=== PATIENT | male | born 1955 | race African-American/Black ===

== ENCOUNTER 2020-06-25 21:25 | Emergency (ER) | payer OTHER, MEDICARE ==
[2020-06-25 21:44] VITALS: BMI 17.6
[2020-06-25] MEDS ORDERED: LACTATED RINGERS SOLUTION 1000 ML INFUS.BAG IV ONE (21:56)
[2020-06-25] MEDS ORDERED: ACETAMINOPHEN 1000 MG/100 ML VIAL (NON FORMULARY) IVPB ONE ×2 (22:11→23:43)
[2020-06-25 23:23] LABS: BASO % 0.5 % (0-2.0); EOS % 0.1 % (0-4.5); HEMATOCRIT 27.1 % (35.4-49); LYMPH % 17.4 % (8-40); MCH 32.2 pg (25.7-33.7); MCHC 33.1 g/dl (32.0-35.9); MEAN CELL VOLUME 97.3 fl (80-96); PLATELET COUNT 123 K/MM3 (134-434); RBC 2.79 M/mm3 (4.00-5.60); RDW 14.2 % (11.9-15.9); WHITE BLOOD COUNT 7.2 K/mm3 (4.0-10.0)
[2020-06-25 23:38] LABS: URINE BARBITURATES NEGATIVE ng/ml (CUTOFF=200)
[2020-06-25 23:39] LABS: METHADONE, UR NEGATIVE ng/ml (CUTOFF=300); OPIATES, URI NEGATIVE ng/ml (CUTOFF=300); URINE BENZODIAZEPINES NEGATIVE ng/ml (CUTOFF=200)
[2020-06-25 23:40] LABS: CHLORIDE 108 mmol/L (98-107); POTASSIUM 3.6 mmol/L (3.5-5.1); SODIUM 140 mmol/L (136-145)
[2020-06-25 23:41] LABS: PHENCYCLIDINE,URINE NEGATIVE ng/ml (CUTOFF=25)
[2020-06-25 23:43] LABS: ALBUMIN 3.3 g/dl (3.4-5.0); CALCIUM 9.2 mg/dL (8.5-10.1); LIPASE 45 U/L (73-393)
[2020-06-25 23:44] LABS: ANION GAP 11 MMOL/L (8-16); BLOOD UREA NITROGEN 18.9 mg/dL (7-18); CO2 21 mmol/L (21-32); GLUCOSE,RANDOM 94 mg/dL (74-106)
[2020-06-25 23:45] LABS: COCAINE, UR NEGATIVE ng/ml (CUTOFF=300); URINE AMPHETAMINES NEGATIVE ng/ml (CUTOFF=500)
[2020-06-25] MEDS ORDERED: SODIUM CHLORIDE 1,000 ML IV SCH (23:45)
[2020-06-25 23:46] LABS: CREATININE 2.1 mg/dL (0.55-1.3); SGOT/AST 53 U/L (15-37); SGPT/ALT 33 U/L (13-61)
[2020-06-25 23:48] LABS: TOT PROT 9.1 g/dl (6.4-8.2)
[2020-06-25 23:49] LABS: ALK PHOS 66 U/L (45-117)
[2020-06-25 23:56] LABS: EPI CELLS 23 /uL (0-25.1); HYALINE CASTS 1 /uL (0-3.1); URINE APPEARANCE CLEAR; URINE BACTERIA 18 /uL (0-1359); URINE BILIRUBIN NEGATIVE (NEGATIVE); URINE COLOR YELLOW; URINE GLUCOSE (UA) NEGATIVE (NEGATIVE); URINE KETONE TRACE (NEGATIVE); URINE LEUK ESTERASE NEGATIVE (NEGATIVE); URINE NITRITE NEGATIVE (NEGATIVE); URINE PROTEIN 2+ (NEGATIVE); URINE RBC 6 /uL (0-23.9); URINE WBC 7 /uL (0-25.8)
[2020-06-26] MEDS ORDERED: ACETAMINOPHEN INJECTION 100 ML IVPB ONE (00:07)
[2020-06-26 01:19] LABS: ACTIVATED PTT 30.6 SECONDS (25.2-36.5)
[2020-06-26 01:26] LABS: VENOUS BASE EXCESS -5.9 mmol/L (-2-2); VENOUS O2 SATURATION 78.8 % (70-80); VENOUS PCO2 26.3 mmHg (38-52); VENOUS PH 7.437 (7.310-7.410)
[2020-06-26 01:46] LABS: POTASSIUM 3.3 mmol/L (3.5-5.1)
[2020-06-26 01:48] LABS: CALCIUM 8.2 mg/dL (8.5-10.1)
[2020-06-26 01:49] LABS: ALBUMIN 2.8 g/dl (3.4-5.0); BLOOD UREA NITROGEN 18.2 mg/dL (7-18)
[2020-06-26 01:52] LABS: CREATININE 1.8 mg/dL (0.55-1.3)
[2020-06-26 01:53] LABS: BILIRUBIN,TOTAL 0.7 mg/dL (0.2-1); TOT PROT 7.6 g/dl (6.4-8.2)
[2020-06-26 01:58] LABS: MAGNESIUM 1.4 mg/dL (1.8-2.4)
[2020-06-26 02:02] LABS: PHOSPHOROUS 2.3 mg/dL (2.5-4.9)
[2020-06-26 03:28] VITALS: BP 170/91; PULSE 94
[2020-06-26 03:49] LABS: INR 1.22 (0.83-1.09); PROTHROMBIN TIME (PATIENT) 14.7 SEC (9.7-13.0)
[2020-06-26] MEDS ORDERED: CEFTRIAXONE 1,000 MG in DEXTROSE 5%-WATER - 50 ML IVPB ONE (04:13)
[2020-06-26] MEDS ORDERED: AZITHROMYCIN IVPB 500 MG in DEXTROSE 5%-WATER - 250 ML IVPB ONE (04:13)
[2020-06-26 04:42] VITALS: TEMP 99.7
[2020-06-26] MEDS ORDERED: CEFTRIAXONE 1 GM/50 ML BAG ONE (05:04)
[2020-06-26] MEDS ORDERED: AZITHROMYCIN IVPB 500 MG/250 ML BAG IVPB ONE (05:04)
== END 2020-06-26 05:15 | disposition short-term general hospital (02) ==
LOC: JER 21:25
PROC: 3E033GC Introduction of Other Therapeutic Substance into Peripheral Vein, Percutaneous Approach (ICD-10-PCS; principal; 2020-06-25)
DX: R41.82 Altered mental status, unspecified (principal); S32.029A Unspecified fracture of second lumbar vertebra, initial encounter for closed fracture; J18.9 Pneumonia, unspecified organism; Y99.9 Unspecified external cause status
CPT/HCPCS: 36415; 70450-TC; 71045-TC-FY; 71250-TC; 72125-TC; 74176-TC; 80053; 80307; 81003; 82140; 82550; 82553; 82728; 82803; 82962; 83605; 83615; 83690; 83735; 84100; 84443; 84484; 85025; 85610; 85730; 86140; 86850; 86900; 86901; 87040; 87086; 87186; 93005; 93010; 99291; 99292; C9803; J0131; U0003

== ENCOUNTER 2020-08-12 11:41 | Inpatient (IN) | payer OTHER, MEDICARE ==
[2020-08-12] MEDS ORDERED: SODIUM CHLORIDE 1,000 ML IV SCH (11:45)
[2020-08-12 12:12] VITALS: BMI 20.9
[2020-08-12 12:25] LABS: BASO % 0.9 % (0-2.0); EOS % 4.6 % (0-4.5); HEMATOCRIT 28.3 % (35.4-49); HEMOGLOBIN 9.5 GM/dL (11.7-16.9); LYMPH % 18.5 % (8-40); MCH 31.1 pg (25.7-33.7); MCHC 33.6 g/dl (32.0-35.9); MEAN CELL VOLUME 92.5 fl (80-96); MEAN PLT VOLUME 8.7 fl (7.5-11.1); MONO % 6.4 % (3.8-10.2); NEUT % 69.6 % (42.8-82.8); PLATELET COUNT 201 K/MM3 (134-434); RBC 3.06 M/mm3 (4.00-5.60); RDW 13.2 % (11.9-15.9); WHITE BLOOD COUNT 8.1 K/mm3 (4.0-10.0)
[2020-08-12 12:33] LABS: INR 1.24 (0.83-1.09); PROTHROMBIN TIME (PATIENT) 15.2 SEC (9.7-13.0)
[2020-08-12 12:36] LABS: ACTIVATED PTT 48.4 SECONDS (25.2-36.5)
[2020-08-12 13:00] LABS: ALBUMIN 3.4 g/dl (3.4-5.0); ALK PHOS 80 U/L (45-117); ANION GAP 9 MMOL/L (8-16); BILIRUBIN,TOTAL 0.3 mg/dL (0.2-1); CALCIUM 9.4 mg/dL (8.5-10.1); CHLORIDE 108 mmol/L (98-107); CHOLESTEROL 183 mg/dL (50-200); CO2 20 mmol/L (21-32); CREATININE 1.8 mg/dL (0.55-1.3); GLUCOSE,RANDOM 155 mg/dL (74-106); HDL CHOLESTEROL 38 mg/dL (40-60); LDL CHOLESTEROL (ONLY SJRH) 119 mg/dL (5-100); SGOT/AST 29 U/L (15-37); SGPT/ALT 28 U/L (13-61); SODIUM 137 mmol/L (136-145); TOT PROT 9.1 g/dl (6.4-8.2); TRIGLYCERIDES 105 mg/dL (0-150)
[2020-08-12 14:29] LABS: LACTIC ACID 3.4 mmol/L (0.4-2.0)
[2020-08-12] MEDS ORDERED: SODIUM CHLORIDE 0.9% 1000 ML INFUS.BAG IV ONE (14:32)
[2020-08-12] MEDS ORDERED: ATORVASTATIN CA 80 MG TABLET (FP) PO ONE (14:49)
[2020-08-12] MEDS ORDERED: ASPIRIN 325 MG ENTERIC COATED TABLET (FP) PO ONE (14:49)
[2020-08-12] MEDS ORDERED: HEPARIN NA (PORCINE) 5,000 UNITS/ML 1ML VIAL ONE ×2 (15:16→22:35)
[2020-08-12] MEDS ORDERED: ATORVASTATIN CA 80 MG TABLET (FP) ONE (15:16)
[2020-08-12] MEDS ORDERED: ASPIRIN 325 MG ENTERIC COATED TABLET (FP) ONE (15:16)
[2020-08-12] MEDS: HEPARIN NA (PORCINE) 5,000 UNITS/ML 1ML VIAL SQ SCH ×2 (15:22→22:38)
[2020-08-12] MEDS ORDERED: FOLIC ACID INJECTION - 1 MG, THIAMINE HCL 100 MG, MULTIVIT INJECTION ADULT 10 ML in SOD... IVPB ONE (16:02)
[2020-08-12 17:47] LABS: URINE APPEARANCE CLEAR; URINE BILIRUBIN NEGATIVE (NEGATIVE); URINE COLOR YELLOW; URINE GLUCOSE (UA) NEGATIVE (NEGATIVE); URINE KETONE NEGATIVE (NEGATIVE); URINE LEUK ESTERASE NEGATIVE (NEGATIVE); URINE NITRITE NEGATIVE (NEGATIVE); URINE PROTEIN NEGATIVE (NEGATIVE); URINE UROBILINOGEN 0.2 mg/dL (0.2-1.0)
[2020-08-12 17:53] LABS: METHADONE, UR NEGATIVE ng/ml (CUTOFF=300); OPIATES, URI NEGATIVE ng/ml (CUTOFF=300); PHENCYCLIDINE,URINE NEGATIVE ng/ml (CUTOFF=25)
[2020-08-12 17:54] LABS: URINE AMPHETAMINES NEGATIVE ng/ml (CUTOFF=500)
[2020-08-12 18:00] LABS: COCAINE, UR NEGATIVE ng/ml (CUTOFF=300); URINE BARBITURATES NEGATIVE ng/ml (CUTOFF=200); URINE BENZODIAZEPINES NEGATIVE ng/ml (CUTOFF=200)
[2020-08-12 18:19] LABS: CHOLESTEROL 189 mg/dL (50-200); IRON SERUM 34 ug/dL (50-175); TRIGLYCERIDES 106 mg/dL (0-150)
[2020-08-12 18:20] LABS: LDL CHOLESTEROL (ONLY SJRH) 122 mg/dL (5-100); TOTAL IRON BINDING CAPACITY 242 ug/dL (250-450)
[2020-08-12 18:22] LABS: HDL CHOLESTEROL 38 mg/dL (40-60)
[2020-08-13] MEDS: HEPARIN NA (PORCINE) 5,000 UNITS/ML 1ML VIAL SQ SCH ×3 (06:01→21:21)
[2020-08-13 09:17] LABS: BASO % 1.4 % (0-2.0); EOS % 7.6 % (0-4.5); HEMATOCRIT 25.4 % (35.4-49); HEMOGLOBIN 8.6 GM/dL (11.7-16.9); LYMPH % 32.9 % (8-40); MCHC 33.9 g/dl (32.0-35.9); MEAN CELL VOLUME 91.5 fl (80-96); MEAN PLT VOLUME 8.5 fl (7.5-11.1); MONO % 11.5 % (3.8-10.2); NEUT % 46.6 % (42.8-82.8); PLATELET COUNT 181 K/MM3 (134-434); RBC 2.78 M/mm3 (4.00-5.60); RDW 13.4 % (11.9-15.9); WHITE BLOOD COUNT 5.2 K/mm3 (4.0-10.0)
[2020-08-13] MEDS: ASPIRIN 81 MG CHEWABLE TABLETS PO SCH (09:44)
[2020-08-13] MEDS: PANTOPRAZOLE 40 MG TABLET PO SCH (09:44)
[2020-08-13 10:17] LABS: ALBUMIN 3.1 g/dl (3.4-5.0); BILIRUBIN,TOTAL 0.5 mg/dL (0.2-1); CALCIUM 9.2 mg/dL (8.5-10.1); CREATININE 1.5 mg/dL (0.55-1.3); MAGNESIUM 1.7 mg/dL (1.8-2.4); PHOSPHOROUS 4.4 mg/dL (2.5-4.9); TOT PROT 8.3 g/dl (6.4-8.2)
[2020-08-13] MEDS ORDERED: MAGNESIUM OXIDE 400 MG TABLET (FP) PO ONE (10:43)
[2020-08-13] MEDS: THIAMINE HCL 100 MG TABLET (FP) PO SCH (13:46)
[2020-08-13] MEDS: LABETALOL HCL 200 MG TABLET (FP) PO SCH (21:21)
[2020-08-13] MEDS ORDERED: ATORVASTATIN CA 40 MG TABLET (FP) PO SCH (22:00)
[2020-08-14] MEDS: HEPARIN NA (PORCINE) 5,000 UNITS/ML 1ML VIAL SQ SCH (05:40)
[2020-08-14 08:19] VITALS: TEMP 98
[2020-08-14 08:30] LABS: HEMATOCRIT 25.2 % (35.4-49); HEMOGLOBIN 8.4 GM/dL (11.7-16.9); MCH 30.9 pg (25.7-33.7); MCHC 33.4 g/dl (32.0-35.9); MEAN CELL VOLUME 92.7 fl (80-96); MEAN PLT VOLUME 8.9 fl (7.5-11.1); PLATELET COUNT 181 K/MM3 (134-434); RBC 2.72 M/mm3 (4.00-5.60); RDW 13.3 % (11.9-15.9); WHITE BLOOD COUNT 5.1 K/mm3 (4.0-10.0)
[2020-08-14] MEDS: ASPIRIN 81 MG CHEWABLE TABLETS PO SCH (09:52)
[2020-08-14] MEDS: LABETALOL HCL 200 MG TABLET (FP) PO SCH (09:52)
[2020-08-14] MEDS: PANTOPRAZOLE 40 MG TABLET PO SCH (09:52)
[2020-08-14] MEDS: THIAMINE HCL 100 MG TABLET (FP) PO SCH (09:52)
[2020-08-14] MEDS ORDERED: amLODIPine BESYLATE 10 MG TABLET (FP) PO SCH (10:00)
[2020-08-14 10:28] LABS: BLOOD UREA NITROGEN 19.8 mg/dL (7-18); CALCIUM 9.4 mg/dL (8.5-10.1)
[2020-08-14 10:32] LABS: CREATININE 1.8 mg/dL (0.55-1.3); PHOSPHOROUS 4.6 mg/dL (2.5-4.9)
[2020-08-14 10:33] LABS: BILIRUBIN,TOTAL 0.3 mg/dL (0.2-1); TOT PROT 8.4 g/dl (6.4-8.2)
[2020-08-14 13:51] VITALS: BP 115/87; PULSE 70
== END 2020-08-14 15:52 | disposition home or self-care (01) | DRG 65 ==
LOC: JER 11:41 → JERBED 13:36 → J6WEST-2 08-13 02:10
PROVIDERS: ATTEND Student in an Organized Health Care Education/Training Program
DX: I63.9 Cerebral infarction, unspecified (principal); I69.351 Hemiplegia and hemiparesis following cerebral infarction affecting right dominant side; I69.392 Facial weakness following cerebral infarction; I65.22 Occlusion and stenosis of left carotid artery; I25.10 Atherosclerotic heart disease of native coronary artery without angina pectoris; I10 Essential (primary) hypertension; R29.701 NIHSS score 1; H40.9 Unspecified glaucoma; F03.90 Unspecified dementia, unspecified severity, without behavioral disturbance, psychotic disturbance, mood disturbance, and anxiety; R41.82 Altered mental status, unspecified; K21.9 Gastro-esophageal reflux disease without esophagitis; E03.9 Hypothyroidism, unspecified; D50.9 Iron deficiency anemia, unspecified; R32 Unspecified urinary incontinence; I69.391 Dysphagia following cerebral infarction; R13.10 Dysphagia, unspecified
CPT/HCPCS: 36415; 70450-TC; 70551-TC; 71045-TC-FY; 80053; 80061; 80307; 81003; 82140; 82550; 82607; 82728; 83036; 83090; 83540; 83550; 83605; 83721; 83735; 84100; 84146; 84436; 84439; 84443; 84484; 85025; 85027; 85610; 85730; 86593; 86780; 86850; 86900; 86901; 87804; 93005; 93010; 93306-TC; 93880-TC; 97116-GP; 97161-GP; 99285-25; C9803; G0480; J1644; U0003; U0005

== ENCOUNTER 2020-08-16 09:58 | Inpatient (IN) | payer OTHER, MEDICARE ==
[2020-08-16 10:33] LABS: BASO % 0.8 % (0-2.0); EOS % 6.3 % (0-4.5); HEMATOCRIT 26.2 % (35.4-49); HEMOGLOBIN 8.8 GM/dL (11.7-16.9); LYMPH % 26.8 % (8-40); MCH 31.5 pg (25.7-33.7); MCHC 33.5 g/dl (32.0-35.9); MEAN CELL VOLUME 93.8 fl (80-96); MEAN PLT VOLUME 8.8 fl (7.5-11.1); MONO % 11.6 % (3.8-10.2); NEUT % 54.5 % (42.8-82.8); PLATELET COUNT 191 K/MM3 (134-434); RBC 2.79 M/mm3 (4.00-5.60); RDW 13.8 % (11.9-15.9); WHITE BLOOD COUNT 6.6 K/mm3 (4.0-10.0)
[2020-08-16 10:40] LABS: INR 1.2 (0.83-1.09); PROTHROMBIN TIME (PATIENT) 14.7 SEC (9.7-13.0)
[2020-08-16 10:57] LABS: CHLORIDE 105 mmol/L (98-107); SODIUM 133 mmol/L (136-145)
[2020-08-16 10:59] LABS: BLOOD UREA NITROGEN 20.4 mg/dL (7-18); CALCIUM 9.2 mg/dL (8.5-10.1); CO2 22 mmol/L (21-32)
[2020-08-16 11:01] LABS: GLUCOSE,RANDOM 82 mg/dL (74-106)
[2020-08-16 11:02] LABS: CREATININE 1.9 mg/dL (0.55-1.3)
[2020-08-16 11:03] LABS: CHOLESTEROL 137 mg/dL (50-200); TRIGLYCERIDES 67 mg/dL (0-150)
[2020-08-16 11:04] LABS: BILIRUBIN,TOTAL 0.3 mg/dL (0.2-1); LDL CHOLESTEROL (ONLY SJRH) 93 mg/dL (5-100); TOT PROT 9.7 g/dl (6.4-8.2)
[2020-08-16 11:05] LABS: ALK PHOS 86 U/L (45-117)
[2020-08-16 11:06] LABS: HDL CHOLESTEROL 39 mg/dL (40-60)
[2020-08-16 11:46] LABS: ANION GAP 7 MMOL/L (8-16); SGOT/AST 117 U/L (15-37); SGPT/ALT 36 U/L (13-61)
[2020-08-16] MEDS ORDERED: CLOPIDOGREL BISULFATE 300 MG TABLET PO ONE (12:22)
[2020-08-16] MEDS ORDERED: CLOPIDOGREL BISULFATE 300 MG TABLET ONE (12:44)
[2020-08-16] MEDS ORDERED: ACETAMINOPHEN 325 MG TABLET (FP) PO PRN (16:31)
[2020-08-16] MEDS ORDERED: SODIUM CHLORIDE 1,000 ML IV SCH (16:45)
[2020-08-16] MEDS ORDERED: ASPIRIN COATED 81 MG TABLET.EC ONE (17:30)
[2020-08-16] MEDS: ASPIRIN COATED 81 MG TABLET.EC PO SCH (17:33)
[2020-08-16] MEDS: HEPARIN NA (PORCINE) 5,000 UNITS/ML 1ML VIAL SQ SCH ×2 (18:57→22:18)
[2020-08-16 22:15] LABS: CHOLESTEROL 147 mg/dL (50-200); TRIGLYCERIDES 98 mg/dL (0-150)
[2020-08-16 22:16] LABS: LDL CHOLESTEROL (ONLY SJRH) 90 mg/dL (5-100)
[2020-08-16 22:18] LABS: HDL CHOLESTEROL 34 mg/dL (40-60)
[2020-08-16] MEDS: ATORVASTATIN CA 80 MG TABLET (FP) PO SCH (22:18)
[2020-08-16] MEDS: INSULIN SLIDING SCALE (NOVOLOG) 1 VIAL SQ SCH (22:19)
[2020-08-17 01:59] LABS: URINE APPEARANCE CLEAR; URINE BILIRUBIN NEGATIVE (NEGATIVE); URINE COLOR YELLOW; URINE GLUCOSE (UA) NEGATIVE (NEGATIVE); URINE KETONE NEGATIVE (NEGATIVE); URINE LEUK ESTERASE NEGATIVE (NEGATIVE); URINE NITRITE NEGATIVE (NEGATIVE); URINE PROTEIN NEGATIVE (NEGATIVE)
[2020-08-17] MEDS: INSULIN SLIDING SCALE (NOVOLOG) 1 VIAL SQ SCH ×4 (06:38→22:07)
[2020-08-17] MEDS: HEPARIN NA (PORCINE) 5,000 UNITS/ML 1ML VIAL SQ SCH ×3 (06:41→22:06)
[2020-08-17 07:18] LABS: BASO % 1.2 % (0-2.0); EOS % 6.9 % (0-4.5); HEMATOCRIT 23.1 % (35.4-49); HEMOGLOBIN 7.9 GM/dL (11.7-16.9); LYMPH % 30.5 % (8-40); MCH 31.2 pg (25.7-33.7); MCHC 34.4 g/dl (32.0-35.9); MEAN CELL VOLUME 90.9 fl (80-96); MEAN PLT VOLUME 8.5 fl (7.5-11.1); MONO % 14.2 % (3.8-10.2); NEUT % 47.2 % (42.8-82.8); PLATELET COUNT 173 K/MM3 (134-434); RBC 2.54 M/mm3 (4.00-5.60); RDW 13.4 % (11.9-15.9); WHITE BLOOD COUNT 5.7 K/mm3 (4.0-10.0)
[2020-08-17 07:19] LABS: INR 1.16 (0.83-1.09); PROTHROMBIN TIME (PATIENT) 14.2 SEC (9.7-13.0)
[2020-08-17 07:41] LABS: BLOOD UREA NITROGEN 26.4 mg/dL (7-18); CALCIUM 9.1 mg/dL (8.5-10.1); MAGNESIUM 1.8 mg/dL (1.8-2.4)
[2020-08-17 07:44] LABS: CREATININE 1.6 mg/dL (0.55-1.3)
[2020-08-17 07:46] LABS: BILIRUBIN,TOTAL 0.3 mg/dL (0.2-1); TOT PROT 8.2 g/dl (6.4-8.2)
[2020-08-17] MEDS ORDERED: PNEUMOC 13-VAL CONJ-DIP CRM/PF 0.5 ML DISP.SYRIN IM ONE (10:00)
[2020-08-17 10:32] LABS: ANISOCYTOSIS 1+; MACROCYTOSIS 1+; PLATELET ESTIMATE NORMAL
[2020-08-17] MEDS: ASPIRIN COATED 81 MG TABLET.EC PO SCH (10:44)
[2020-08-17] MEDS: CLOPIDOGREL BISULFATE 75 MG TABLET (FP) PO SCH (10:44)
[2020-08-17 13:18] VITALS: BMI 20.8
[2020-08-17] MEDS: ATORVASTATIN CA 80 MG TABLET (FP) PO SCH (22:06)
[2020-08-17 22:47] LABS: COCAINE, UR NEGATIVE ng/ml (CUTOFF=300); METHADONE, UR NEGATIVE ng/ml (CUTOFF=300); OPIATES, URI NEGATIVE ng/ml (CUTOFF=300); PHENCYCLIDINE,URINE NEGATIVE ng/ml (CUTOFF=25); URINE AMPHETAMINES NEGATIVE ng/ml (CUTOFF=500); URINE BARBITURATES NEGATIVE ng/ml (CUTOFF=200); URINE BENZODIAZEPINES NEGATIVE ng/ml (CUTOFF=200)
[2020-08-18] MEDS: HEPARIN NA (PORCINE) 5,000 UNITS/ML 1ML VIAL SQ SCH ×3 (06:48→21:47)
[2020-08-18] MEDS: INSULIN SLIDING SCALE (NOVOLOG) 1 VIAL SQ SCH (06:48)
[2020-08-18 07:19] LABS: HEMATOCRIT 24.4 % (35.4-49); HEMOGLOBIN 8.3 GM/dL (11.7-16.9); MCH 31.3 pg (25.7-33.7); MEAN CELL VOLUME 91.9 fl (80-96); MEAN PLT VOLUME 8.7 fl (7.5-11.1); PLATELET COUNT 193 K/MM3 (134-434); RBC 2.66 M/mm3 (4.00-5.60); RDW 13.2 % (11.9-15.9); WHITE BLOOD COUNT 7.6 K/mm3 (4.0-10.0)
[2020-08-18 07:39] LABS: BLOOD UREA NITROGEN 24.8 mg/dL (7-18); CALCIUM 9.3 mg/dL (8.5-10.1); CREATININE 1.7 mg/dL (0.55-1.3)
[2020-08-18] MEDS: ASPIRIN COATED 81 MG TABLET.EC PO SCH (09:36)
[2020-08-18] MEDS: CLOPIDOGREL BISULFATE 75 MG TABLET (FP) PO SCH (09:37)
[2020-08-18] MEDS ORDERED: EPOETIN ALFA 10,000 UNIT/1 ML VIAL SQ ONE (12:00)
[2020-08-18] MEDS: LABETALOL HCL 200 MG TABLET (FP) PO SCH (21:47)
[2020-08-18] MEDS: ATORVASTATIN CA 80 MG TABLET (FP) PO SCH (21:47)
[2020-08-19] MEDS: HEPARIN NA (PORCINE) 5,000 UNITS/ML 1ML VIAL SQ SCH ×2 (06:53→13:26)
[2020-08-19] MEDS: CLOPIDOGREL BISULFATE 75 MG TABLET (FP) PO SCH (09:03)
[2020-08-19] MEDS: LABETALOL HCL 200 MG TABLET (FP) PO SCH (09:04)
[2020-08-19] MEDS: ASPIRIN COATED 81 MG TABLET.EC PO SCH (09:04)
[2020-08-19 13:59] VITALS: BP 121/77; PULSE 75; TEMP 98.2
== END 2020-08-19 16:40 | disposition home or self-care (01) | DRG 948 ==
LOC: JER 09:58 → SUPCPDRO 09:58 → JERBED 15:02 → J4W 20:29
PROVIDERS: ADMIT Internal Medicine; ATTEND Student in an Organized Health Care Education/Training Program
DX: R41.0 Disorientation, unspecified (principal); R29.810 Facial weakness; F03.90 Unspecified dementia, unspecified severity, without behavioral disturbance, psychotic disturbance, mood disturbance, and anxiety; I10 Essential (primary) hypertension; N18.9 Chronic kidney disease, unspecified; F10.10 Alcohol abuse, uncomplicated; F16.90 Hallucinogen use, unspecified, uncomplicated; E78.5 Hyperlipidemia, unspecified; I25.10 Atherosclerotic heart disease of native coronary artery without angina pectoris; F17.210 Nicotine dependence, cigarettes, uncomplicated
CPT/HCPCS: 36415; 70450-TC; 71045-TC-FY; 72125-TC; 76775-TC; 80048; 80053; 80061; 80307; 81003; 82550; 82553; 82570; 82962; 83721; 83735; 84100; 84132; 84156; 84484; 85025; 85027; 85610; 85730; 87086; 90670; 93005; 93010; 97116-GP; 97161-GP; 99285-25; C9803; G0480; J0885; J1644; U0003; U0005

== ENCOUNTER 2020-08-21 11:04 | Inpatient (IN) | payer OTHER, MEDICARE ==
[2020-08-21 12:40] LABS: BASO % 3.8 % (0-2.0); EOS % 5.7 % (0-4.5); HEMATOCRIT 26.5 % (35.4-49); HEMOGLOBIN 8.8 GM/dL (11.7-16.9); LYMPH % 19.7 % (8-40); MCH 30.6 pg (25.7-33.7); MCHC 33.3 g/dl (32.0-35.9); MEAN PLT VOLUME 8.7 fl (7.5-11.1); MONO % 9.9 % (3.8-10.2); NEUT % 60.9 % (42.8-82.8); PLATELET COUNT 227 K/MM3 (134-434); RBC 2.88 M/mm3 (4.00-5.60); RDW 13.3 % (11.9-15.9); WHITE BLOOD COUNT 7.1 K/mm3 (4.0-10.0)
[2020-08-21 12:44] LABS: INR 1.21 (0.83-1.09); PROTHROMBIN TIME (PATIENT) 14.6 SEC (9.7-13.0)
[2020-08-21 12:55] LABS: CHLORIDE 109 mmol/L (98-107); SODIUM 138 mmol/L (136-145)
[2020-08-21 12:58] LABS: CALCIUM 9.6 mg/dL (8.5-10.1)
[2020-08-21 12:59] LABS: ALBUMIN 3.2 g/dl (3.4-5.0); ANION GAP 5 MMOL/L (8-16); BLOOD UREA NITROGEN 32.6 mg/dL (7-18); CO2 24 mmol/L (21-32); GLUCOSE,RANDOM 95 mg/dL (74-106); MAGNESIUM 2.1 mg/dL (1.8-2.4)
[2020-08-21 13:02] LABS: SGOT/AST 43 U/L (15-37); SGPT/ALT 29 U/L (13-61)
[2020-08-21 13:03] LABS: BILIRUBIN,TOTAL 0.3 mg/dL (0.2-1)
[2020-08-21 13:04] LABS: ALK PHOS 88 U/L (45-117)
[2020-08-21] MEDS ORDERED: SODIUM CHLORIDE 500 ML IV STA (13:07)
[2020-08-21 18:28] LABS: EPI CELLS 3 /uL (0-25.1); HYALINE CASTS 0 /uL (0-3.1); PH,URINE 6.5 (5.0-8.0); URINE APPEARANCE CLEAR; URINE BACTERIA 50 /uL (0-1359); URINE BILIRUBIN NEGATIVE (NEGATIVE); URINE COLOR YELLOW; URINE GLUCOSE (UA) NEGATIVE (NEGATIVE); URINE KETONE NEGATIVE (NEGATIVE); URINE LEUK ESTERASE TRACE (NEGATIVE); URINE NITRITE NEGATIVE (NEGATIVE); URINE PROTEIN TRACE (NEGATIVE); URINE RBC 0 /uL (0-23.9); URINE UROBILINOGEN 0.2 mg/dL (0.2-1.0); URINE WBC 2 /uL (0-25.8)
[2020-08-21] MEDS ORDERED: HEPARIN NA (PORCINE) 5,000 UNITS/ML 1ML VIAL SQ SCH (22:00)
[2020-08-21] MEDS ORDERED: LABETALOL HCL 200 MG TABLET (FP) PO SCH (22:00)
[2020-08-21] MEDS: INSULIN SLIDING SCALE (NOVOLOG) 1 VIAL SQ SCH (23:07)
[2020-08-21] MEDS: ATORVASTATIN CA 80 MG TABLET (FP) PO SCH (23:08)
[2020-08-21] MEDS: SODIUM CHLORIDE 1,000 ML IV SCH (23:08)
[2020-08-22 01:11] VITALS: BMI 20.7
[2020-08-22] MEDS: INSULIN SLIDING SCALE (NOVOLOG) 1 VIAL SQ SCH ×4 (06:11→21:44)
[2020-08-22 08:49] LABS: EOS % 7.7 % (0-4.5); HEMATOCRIT 25.3 % (35.4-49); HEMOGLOBIN 8.6 GM/dL (11.7-16.9); LYMPH % 27.5 % (8-40); MCH 31.3 pg (25.7-33.7); MCHC 34.1 g/dl (32.0-35.9); MEAN CELL VOLUME 91.8 fl (80-96); MEAN PLT VOLUME 8.5 fl (7.5-11.1); MONO % 11.3 % (3.8-10.2); NEUT % 52.5 % (42.8-82.8); PLATELET COUNT 231 K/MM3 (134-434); RBC 2.75 M/mm3 (4.00-5.60); RDW 13.1 % (11.9-15.9); WHITE BLOOD COUNT 5.8 K/mm3 (4.0-10.0)
[2020-08-22 09:09] LABS: ALBUMIN 3.3 g/dl (3.4-5.0); MAGNESIUM 1.8 mg/dL (1.8-2.4)
[2020-08-22 09:10] LABS: BLOOD UREA NITROGEN 24.3 mg/dL (7-18); CALCIUM 9.2 mg/dL (8.5-10.1)
[2020-08-22 09:13] LABS: CREATININE 1.6 mg/dL (0.55-1.3)
[2020-08-22 09:14] LABS: PHOSPHOROUS 4.5 mg/dL (2.5-4.9); TOT PROT 8.6 g/dl (6.4-8.2)
[2020-08-22 09:15] LABS: BILIRUBIN,TOTAL 0.4 mg/dL (0.2-1)
[2020-08-22] MEDS: ASPIRIN COATED 81 MG TABLET.EC PO SCH (09:32)
[2020-08-22] MEDS ORDERED: amLODIPine BESYLATE 10 MG TABLET (FP) PO SCH (10:00)
[2020-08-22] MEDS ORDERED: INSULIN (NOVOLOG) ASPART 100 UNITS/ML 10ML VIAL ONE (11:43)
[2020-08-22] MEDS: SODIUM CHLORIDE 1,000 ML IV SCH (18:48)
[2020-08-22] MEDS: LABETALOL HCL 200 MG TABLET (FP) PO SCH (21:24)
[2020-08-22] MEDS: ATORVASTATIN CA 80 MG TABLET (FP) PO SCH (21:24)
[2020-08-23] MEDS: INSULIN SLIDING SCALE (NOVOLOG) 1 VIAL SQ SCH ×3 (06:14→16:53)
[2020-08-23 07:35] LABS: HEMATOCRIT 23.1 % (35.4-49); HEMOGLOBIN 7.8 GM/dL (11.7-16.9); MCH 31.4 pg (25.7-33.7); MCHC 33.8 g/dl (32.0-35.9); MEAN PLT VOLUME 8.8 fl (7.5-11.1); PLATELET COUNT 223 K/MM3 (134-434); RBC 2.48 M/mm3 (4.00-5.60); RDW 13.6 % (11.9-15.9); WHITE BLOOD COUNT 8.2 K/mm3 (4.0-10.0)
[2020-08-23 08:00] LABS: CALCIUM 9.5 mg/dL (8.5-10.1)
[2020-08-23 08:01] LABS: MAGNESIUM 1.8 mg/dL (1.8-2.4)
[2020-08-23 08:04] LABS: BLOOD UREA NITROGEN 27.5 mg/dL (7-18)
[2020-08-23 08:07] LABS: CREATININE 1.6 mg/dL (0.55-1.3)
[2020-08-23] MEDS ORDERED: SODIUM CHLORIDE 250 ML IV STA (09:15)
[2020-08-23] MEDS: ASPIRIN COATED 81 MG TABLET.EC PO SCH (10:00)
[2020-08-23] MEDS: LABETALOL HCL 200 MG TABLET (FP) PO SCH ×2 (10:00→21:32)
[2020-08-23] MEDS: CLOPIDOGREL BISULFATE 75 MG TABLET (FP) PO SCH (10:00)
[2020-08-23] MEDS: MULTIVITAMINS (DAILY MVI) TABLET (FP) PO SCH (10:00)
[2020-08-23] MEDS: amLODIPine BESYLATE 10 MG TABLET (FP) PO SCH (10:00)
[2020-08-23] MEDS: THIAMINE HCL 100 MG TABLET (FP) PO SCH (10:00)
[2020-08-23] MEDS: ACETAMINOPHEN 325 MG TABLET (FP) PO PRN (14:10)
[2020-08-23 20:59] LABS: PH,URINE 5.5 (5.0-8.0); URINE APPEARANCE CLEAR; URINE BILIRUBIN NEGATIVE (NEGATIVE); URINE COLOR YELLOW; URINE GLUCOSE (UA) NEGATIVE (NEGATIVE); URINE KETONE NEGATIVE (NEGATIVE); URINE LEUK ESTERASE NEGATIVE (NEGATIVE); URINE NITRITE NEGATIVE (NEGATIVE); URINE PROTEIN NEGATIVE (NEGATIVE); URINE UROBILINOGEN 0.2 mg/dL (0.2-1.0)
[2020-08-23] MEDS: ATORVASTATIN CA 80 MG TABLET (FP) PO SCH (21:32)
[2020-08-23] MEDS: SODIUM CHLORIDE 1,000 ML IV SCH (21:32)
[2020-08-24] MEDS: SODIUM CHLORIDE 1,000 ML IV SCH (03:21)
[2020-08-24] MEDS: ACETAMINOPHEN 325 MG TABLET (FP) PO PRN (06:52)
[2020-08-24 08:21] LABS: BASO % 0.8 % (0-2.0); EOS % 3.9 % (0-4.5); HEMATOCRIT 23.5 % (35.4-49); HEMOGLOBIN 7.9 GM/dL (11.7-16.9); LYMPH % 21.5 % (8-40); MCH 30.8 pg (25.7-33.7); MCHC 33.6 g/dl (32.0-35.9); MEAN CELL VOLUME 91.8 fl (80-96); MEAN PLT VOLUME 8.2 fl (7.5-11.1); MONO % 12.8 % (3.8-10.2); PLATELET COUNT 225 K/MM3 (134-434); RBC 2.56 M/mm3 (4.00-5.60); RDW 13.5 % (11.9-15.9); WHITE BLOOD COUNT 7.6 K/mm3 (4.0-10.0)
[2020-08-24 08:55] LABS: CREATININE 1.8 mg/dL (0.55-1.3); MAGNESIUM 1.6 mg/dL (1.8-2.4)
[2020-08-24 08:56] LABS: PHOSPHOROUS 4.3 mg/dL (2.5-4.9)
[2020-08-24 08:57] LABS: BILIRUBIN,TOTAL 0.5 mg/dL (0.2-1); TOT PROT 8.1 g/dl (6.4-8.2)
[2020-08-24] MEDS ORDERED: MAGNESIUM SULF 50% (8.12 MEQ/2 ML-1 GM VIAL) IVPB ONE (10:05)
[2020-08-24] MEDS: THIAMINE HCL 100 MG TABLET (FP) PO SCH (10:34)
[2020-08-24] MEDS: MULTIVITAMINS (DAILY MVI) TABLET (FP) PO SCH (10:35)
[2020-08-24] MEDS: ASPIRIN COATED 81 MG TABLET.EC PO SCH (10:35)
[2020-08-24] MEDS: amLODIPine BESYLATE 10 MG TABLET (FP) PO SCH (10:35)
[2020-08-24] MEDS: LORATADINE 10 MG TABLET PO SCH (10:35)
[2020-08-24] MEDS: CLOPIDOGREL BISULFATE 75 MG TABLET (FP) PO SCH (10:35)
[2020-08-24] MEDS: LABETALOL HCL 200 MG TABLET (FP) PO SCH ×2 (10:35→21:33)
[2020-08-24 10:51] LABS: ANISOCYTOSIS 1+; PLATELET ESTIMATE NORMAL
[2020-08-24] MEDS ORDERED: SODIUM CHLORIDE 1,000 ML IV SCH (12:30)
[2020-08-24 14:07] LABS: HEP B CORE AB, TOT Negative (Negative)
[2020-08-24] MEDS: ATORVASTATIN CA 80 MG TABLET (FP) PO SCH (21:33)
[2020-08-25] MEDS: ACETAMINOPHEN 325 MG TABLET (FP) PO PRN (01:21)
[2020-08-25 08:25] LABS: HEMATOCRIT 22.9 % (35.4-49); HEMOGLOBIN 7.8 GM/dL (11.7-16.9); MCH 31.3 pg (25.7-33.7); MCHC 33.9 g/dl (32.0-35.9); MEAN CELL VOLUME 92.1 fl (80-96); MEAN PLT VOLUME 8.8 fl (7.5-11.1); PLATELET COUNT 221 K/MM3 (134-434); RBC 2.49 M/mm3 (4.00-5.60); RDW 13.5 % (11.9-15.9); WHITE BLOOD COUNT 7.1 K/mm3 (4.0-10.0)
[2020-08-25 08:42] LABS: BLOOD UREA NITROGEN 39.9 mg/dL (7-18); CALCIUM 8.9 mg/dL (8.5-10.1)
[2020-08-25 08:43] LABS: MAGNESIUM 2.2 mg/dL (1.8-2.4)
[2020-08-25 08:45] LABS: CREATININE 1.9 mg/dL (0.55-1.3); PHOSPHOROUS 4.8 mg/dL (2.5-4.9)
[2020-08-25 08:47] LABS: BILIRUBIN,TOTAL 0.4 mg/dL (0.2-1); TOT PROT 8.2 g/dl (6.4-8.2)
[2020-08-25] MEDS: LORATADINE 10 MG TABLET PO SCH (10:04)
[2020-08-25] MEDS: LABETALOL HCL 200 MG TABLET (FP) PO SCH ×2 (10:04→21:39)
[2020-08-25] MEDS: ASPIRIN COATED 81 MG TABLET.EC PO SCH (10:04)
[2020-08-25] MEDS: THIAMINE HCL 100 MG TABLET (FP) PO SCH (10:04)
[2020-08-25] MEDS: MULTIVITAMINS (DAILY MVI) TABLET (FP) PO SCH (10:04)
[2020-08-25] MEDS: CLOPIDOGREL BISULFATE 75 MG TABLET (FP) PO SCH (10:04)
[2020-08-25] MEDS: amLODIPine BESYLATE 10 MG TABLET (FP) PO SCH (10:04)
[2020-08-25] MEDS: ATORVASTATIN CA 80 MG TABLET (FP) PO SCH (21:39)
[2020-08-26 07:46] LABS: EOS % 5.6 % (0-4.5); HEMATOCRIT 23.8 % (35.4-49); HEMOGLOBIN 8.1 GM/dL (11.7-16.9); LYMPH % 26.1 % (8-40); MCH 31.4 pg (25.7-33.7); MCHC 34.1 g/dl (32.0-35.9); MEAN PLT VOLUME 8.6 fl (7.5-11.1); MONO % 13.3 % (3.8-10.2); PLATELET COUNT 239 K/MM3 (134-434); RBC 2.59 M/mm3 (4.00-5.60); RDW 13.5 % (11.9-15.9); WHITE BLOOD COUNT 7.9 K/mm3 (4.0-10.0)
[2020-08-26 08:02] LABS: ALBUMIN 3.3 g/dl (3.4-5.0); BLOOD UREA NITROGEN 43.7 mg/dL (7-18); CALCIUM 9.9 mg/dL (8.5-10.1); MAGNESIUM 2.2 mg/dL (1.8-2.4)
[2020-08-26 08:07] LABS: BILIRUBIN,TOTAL 0.4 mg/dL (0.2-1); TOT PROT 9.1 g/dl (6.4-8.2)
[2020-08-26] MEDS ORDERED: ALBUTEROL SO4 HFA INHALER IH PRN (08:49)
[2020-08-26] MEDS ORDERED: SODIUM CHLORIDE 500 ML IV STA (09:59)
[2020-08-26] MEDS ORDERED: LACTATED RINGERS SOLUTION 1,000 ML/1,000 ML INFUS.BAG IV STA (10:01)
[2020-08-26] MEDS ORDERED: LACTATED RINGERS SOLUTION 1,000 ML/1,000 ML INFUS.BAG IV SCH (10:15)
[2020-08-26] MEDS: MULTIVITAMINS (DAILY MVI) TABLET (FP) PO SCH (10:33)
[2020-08-26] MEDS: LABETALOL HCL 200 MG TABLET (FP) PO SCH ×2 (10:33→23:05)
[2020-08-26] MEDS: LORATADINE 10 MG TABLET PO SCH (10:33)
[2020-08-26] MEDS: ASPIRIN COATED 81 MG TABLET.EC PO SCH (10:33)
[2020-08-26] MEDS: THIAMINE HCL 100 MG TABLET (FP) PO SCH (10:33)
[2020-08-26] MEDS: amLODIPine BESYLATE 10 MG TABLET (FP) PO SCH (10:34)
[2020-08-26] MEDS: CLOPIDOGREL BISULFATE 75 MG TABLET (FP) PO SCH (10:34)
[2020-08-26 15:38] LABS: BLOOD UREA NITROGEN 47.1 mg/dL (7-18); CALCIUM 9.2 mg/dL (8.5-10.1)
[2020-08-26] MEDS ORDERED: SODIUM ZIRCONIUM CYCLOSILICATE (LOKELMA) 5 GM PACKET PO ONE (15:38)
[2020-08-26 15:39] LABS: MAGNESIUM 2.1 mg/dL (1.8-2.4)
[2020-08-26 15:42] LABS: PHOSPHOROUS 5.1 mg/dL (2.5-4.9)
[2020-08-26] MEDS ORDERED: SODIUM CHLORIDE 0.45% 1,000 ML IV SCH (15:45)
[2020-08-26] MEDS: ATORVASTATIN CA 80 MG TABLET (FP) PO SCH (23:05)
[2020-08-27 07:39] LABS: HEMATOCRIT 22.7 % (35.4-49); HEMOGLOBIN 7.8 GM/dL (11.7-16.9); MCH 31.2 pg (25.7-33.7); MCHC 34.4 g/dl (32.0-35.9); MEAN CELL VOLUME 90.9 fl (80-96); MEAN PLT VOLUME 8.7 fl (7.5-11.1); PLATELET COUNT 233 K/MM3 (134-434); RDW 13.5 % (11.9-15.9); WHITE BLOOD COUNT 5.8 K/mm3 (4.0-10.0)
[2020-08-27 08:10] LABS: BLOOD UREA NITROGEN 41.5 mg/dL (7-18); CALCIUM 9.6 mg/dL (8.5-10.1); MAGNESIUM 2.1 mg/dL (1.8-2.4)
[2020-08-27 08:11] LABS: BILIRUBIN,TOTAL 0.3 mg/dL (0.2-1); TOT PROT 8.8 g/dl (6.4-8.2)
[2020-08-27 08:13] LABS: CREATININE 1.8 mg/dL (0.55-1.3); PHOSPHOROUS 5.2 mg/dL (2.5-4.9)
[2020-08-27] MEDS: LORATADINE 10 MG TABLET PO SCH (09:33)
[2020-08-27] MEDS: CLOPIDOGREL BISULFATE 75 MG TABLET (FP) PO SCH (09:33)
[2020-08-27] MEDS: ASPIRIN COATED 81 MG TABLET.EC PO SCH (09:33)
[2020-08-27] MEDS: THIAMINE HCL 100 MG TABLET (FP) PO SCH (09:33)
[2020-08-27] MEDS: LABETALOL HCL 200 MG TABLET (FP) PO SCH (09:33)
[2020-08-27] MEDS: amLODIPine BESYLATE 10 MG TABLET (FP) PO SCH (09:34)
[2020-08-27] MEDS: MULTIVITAMINS (DAILY MVI) TABLET (FP) PO SCH (09:34)
[2020-08-27 14:49] VITALS: BP 119/74; PULSE 81; TEMP 98.4
== END 2020-08-27 17:27 | disposition home health service (06) | DRG 864 ==
LOC: JER 11:04 → INTOOBSV 14:43 → UNDOADMOB 14:43 → JERBED 14:43 → J4W 23:04 → JERBED 23:04 → J4W 08-22 14:27 → JERBED 08-22 14:27 → OBSVTOIN 08-26 09:55
PROVIDERS: ADMIT Internal Medicine; ATTEND Student in an Organized Health Care Education/Training Program
DX: R50.9 Fever, unspecified (principal); N17.9 Acute kidney failure, unspecified; R55 Syncope and collapse; D63.1 Anemia in chronic kidney disease; E11.9 Type 2 diabetes mellitus without complications; E78.5 Hyperlipidemia, unspecified; I10 Essential (primary) hypertension; E86.0 Dehydration; F03.90 Unspecified dementia, unspecified severity, without behavioral disturbance, psychotic disturbance, mood disturbance, and anxiety; N18.30 Chronic kidney disease, stage 3 unspecified; I25.10 Atherosclerotic heart disease of native coronary artery without angina pectoris
CPT/HCPCS: 36415; 70450-TC; 71045-TC-FY; 80048; 80053; 81003; 82140; 82272; 82550; 82962; 82977; 83735; 84100; 84484; 85025; 85027; 85610; 86704; 86706; 86707; 86708; 86709; 86803; 87040; 87086; 87340; 93005; 93010; 93970-TC; 97116-GP; 97161-GP; 99285-25; C9803; G0378; U0003; U0005

== ENCOUNTER 2020-09-18 12:12 | Inpatient (IN) | payer OTHER, MEDICARE ==
[2020-09-18 14:09] LABS: BASO % 0.8 % (0-2.0); EOS % 8.9 % (0-4.5); HEMATOCRIT 20.6 % (35.4-49); LYMPH % 27.4 % (8-40); MCH 30.2 pg (25.7-33.7); MCHC 33.5 g/dl (32.0-35.9); MEAN CELL VOLUME 90.2 fl (80-96); MEAN PLT VOLUME 8.5 fl (7.5-11.1); MONO % 14.7 % (3.8-10.2); NEUT % 48.2 % (42.8-82.8); PLATELET COUNT 176 K/MM3 (134-434); RBC 2.28 M/mm3 (4.00-5.60); RDW 14.2 % (11.9-15.9); WHITE BLOOD COUNT 5.2 K/mm3 (4.0-10.0)
[2020-09-18 14:11] LABS: HEMOGLOBIN 6.9 GM/dL (11.7-16.9)
[2020-09-18 14:17] LABS: INR 1.28 (0.83-1.09); PROTHROMBIN TIME (PATIENT) 15.4 SEC (9.7-13.0)
[2020-09-18 14:19] LABS: ACTIVATED PTT 37.2 SECONDS (25.2-36.5)
[2020-09-18 14:33] LABS: CHLORIDE 112 mmol/L (98-107); SODIUM 140 mmol/L (136-145)
[2020-09-18 14:35] LABS: ALBUMIN 3.5 g/dl (3.4-5.0); ANION GAP 7 MMOL/L (8-16); BLOOD UREA NITROGEN 28.4 mg/dL (7-18); CO2 20 mmol/L (21-32); GLUCOSE,RANDOM 85 mg/dL (74-106)
[2020-09-18 14:38] LABS: CREATININE 2.3 mg/dL (0.55-1.3); SGOT/AST 34 U/L (15-37); SGPT/ALT 33 U/L (13-61)
[2020-09-18 14:41] LABS: ALK PHOS 70 U/L (45-117); BILIRUBIN,TOTAL 0.3 mg/dL (0.2-1); TOT PROT 8.8 g/dl (6.4-8.2)
[2020-09-18] MEDS ORDERED: PANTOPRAZOLE SODIUM 40 MG VIAL IVPUSH ONE (16:53)
[2020-09-18 18:27] VITALS: BMI 20.3
[2020-09-18] MEDS: LACTATED RINGERS SOLUTION 1,000 ML/1,000 ML INFUS.BAG IV SCH (21:26)
[2020-09-18] MEDS ORDERED: PANTOPRAZOLE SODIUM 40 MG VIAL IVPUSH SCH (22:00)
[2020-09-19 08:27] LABS: HEMATOCRIT 24.1 % (35.4-49); HEMOGLOBIN 8.3 GM/dL (11.7-16.9); LYMPH % 26.4 % (8-40); MCH 29.8 pg (25.7-33.7); MCHC 34.3 g/dl (32.0-35.9); MEAN CELL VOLUME 86.8 fl (80-96); NEUT % 52.6 % (42.8-82.8); PLATELET COUNT 174 K/MM3 (134-434); RBC 2.78 M/mm3 (4.00-5.60); RDW 16.7 % (11.9-15.9); WHITE BLOOD COUNT 5.5 K/mm3 (4.0-10.0)
[2020-09-19 08:50] LABS: ALBUMIN 3.2 g/dl (3.4-5.0); BLOOD UREA NITROGEN 22.4 mg/dL (7-18); MAGNESIUM 1.7 mg/dL (1.8-2.4)
[2020-09-19 08:53] LABS: CREATININE 1.7 mg/dL (0.55-1.3)
[2020-09-19 08:54] LABS: PHOSPHOROUS 3.8 mg/dL (2.5-4.9)
[2020-09-19 08:55] LABS: BILIRUBIN,TOTAL 0.4 mg/dL (0.2-1); TOT PROT 8.1 g/dl (6.4-8.2)
[2020-09-19] MEDS ORDERED: ONDANSETRON 4 MG/2 ML VIAL IVPUSH PRN (09:11)
[2020-09-19] MEDS ORDERED: PANTOPRAZOLE SODIUM 80 MG in SODIUM CHLORIDE 100 ML IVPB SCH (10:00)
[2020-09-19] MEDS ORDERED: PANTOPRAZOLE SODIUM 40 MG VIAL IVPUSH SCH ×2 (10:00→22:00)
[2020-09-19] MEDS: ASPIRIN COATED 81 MG TABLET.EC PO SCH (10:43)
[2020-09-19 11:19] LABS: URINE APPEARANCE CLEAR; URINE BILIRUBIN NEGATIVE (NEGATIVE); URINE COLOR YELLOW; URINE GLUCOSE (UA) NEGATIVE (NEGATIVE); URINE KETONE NEGATIVE (NEGATIVE); URINE LEUK ESTERASE NEGATIVE (NEGATIVE); URINE NITRITE NEGATIVE (NEGATIVE); URINE PROTEIN NEGATIVE (NEGATIVE); URINE UROBILINOGEN 0.2 mg/dL (0.2-1.0)
[2020-09-19] MEDS: LACTATED RINGERS SOLUTION 1,000 ML/1,000 ML INFUS.BAG IV SCH ×2 (11:52→19:37)
[2020-09-19] MEDS: POLYETHYLENE GLYCOL 3350 119 GM BTL PO SCH ×2 (15:00→21:31)
[2020-09-19] MEDS: PANTOPRAZOLE SODIUM 80 MG in SODIUM CHLORIDE 100 ML IVPB SCH ×2 (16:39→19:43)
[2020-09-20] MEDS: LACTATED RINGERS SOLUTION 1,000 ML/1,000 ML INFUS.BAG IV SCH (01:12)
[2020-09-20] MEDS: PANTOPRAZOLE SODIUM 80 MG in SODIUM CHLORIDE 100 ML IVPB SCH (04:22)
[2020-09-20] MEDS: POLYETHYLENE GLYCOL 3350 119 GM BTL PO SCH ×3 (05:08→21:04)
[2020-09-20 09:05] LABS: BASO % 0.9 % (0-2.0); EOS % 6.9 % (0-4.5); HEMATOCRIT 25.6 % (35.4-49); HEMOGLOBIN 8.7 GM/dL (11.7-16.9); LYMPH % 25.1 % (8-40); MCH 29.6 pg (25.7-33.7); MCHC 34.1 g/dl (32.0-35.9); MEAN CELL VOLUME 86.8 fl (80-96); MEAN PLT VOLUME 8.1 fl (7.5-11.1); MONO % 10.1 % (3.8-10.2); PLATELET COUNT 190 K/MM3 (134-434); RBC 2.95 M/mm3 (4.00-5.60); RDW 16.5 % (11.9-15.9); WHITE BLOOD COUNT 5.2 K/mm3 (4.0-10.0)
[2020-09-20 09:12] LABS: INR 1.26 (0.83-1.09); PROTHROMBIN TIME (PATIENT) 15.1 SEC (9.7-13.0)
[2020-09-20] MEDS: ASPIRIN COATED 81 MG TABLET.EC PO SCH (09:29)
[2020-09-20 09:36] LABS: BLOOD UREA NITROGEN 13.9 mg/dL (7-18); CALCIUM 9.1 mg/dL (8.5-10.1)
[2020-09-20 09:39] LABS: CREATININE 1.6 mg/dL (0.55-1.3)
[2020-09-20 19:04] LABS: BASO % 1.3 % (0-2.0); HEMATOCRIT 26.1 % (35.4-49); HEMOGLOBIN 8.7 GM/dL (11.7-16.9); MCH 29.2 pg (25.7-33.7); MCHC 33.3 g/dl (32.0-35.9); MEAN CELL VOLUME 87.6 fl (80-96); MEAN PLT VOLUME 8.2 fl (7.5-11.1); MONO % 13.2 % (3.8-10.2); NEUT % 44.5 % (42.8-82.8); PLATELET COUNT 181 K/MM3 (134-434); RBC 2.98 M/mm3 (4.00-5.60); RDW 16.3 % (11.9-15.9); WHITE BLOOD COUNT 4.7 K/mm3 (4.0-10.0)
[2020-09-20] MEDS: PANTOPRAZOLE 40 MG TABLET PO SCH (21:04)
[2020-09-21] MEDS: POLYETHYLENE GLYCOL 3350 119 GM BTL PO SCH ×3 (05:54→21:33)
[2020-09-21] MEDS: ASPIRIN COATED 81 MG TABLET.EC PO SCH (10:27)
[2020-09-21] MEDS: PANTOPRAZOLE 40 MG TABLET PO SCH ×2 (10:27→21:33)
[2020-09-21 10:42] LABS: BASO % 1.1 % (0-2.0); HEMATOCRIT 25.7 % (35.4-49); HEMOGLOBIN 8.7 GM/dL (11.7-16.9); LYMPH % 28.3 % (8-40); MCH 29.3 pg (25.7-33.7); MCHC 33.6 g/dl (32.0-35.9); MEAN CELL VOLUME 87.2 fl (80-96); MEAN PLT VOLUME 7.9 fl (7.5-11.1); MONO % 13.3 % (3.8-10.2); NEUT % 50.3 % (42.8-82.8); PLATELET COUNT 183 K/MM3 (134-434); RBC 2.95 M/mm3 (4.00-5.60); WHITE BLOOD COUNT 4.9 K/mm3 (4.0-10.0)
[2020-09-21 10:49] LABS: INR 1.25 (0.83-1.09); PROTHROMBIN TIME (PATIENT) 15.3 SEC (9.7-13.0)
[2020-09-21 11:06] LABS: ALBUMIN 3.4 g/dl (3.4-5.0); CALCIUM 8.9 mg/dL (8.5-10.1)
[2020-09-21 11:07] LABS: BLOOD UREA NITROGEN 12.6 mg/dL (7-18); MAGNESIUM 1.7 mg/dL (1.8-2.4)
[2020-09-21 11:10] LABS: BILIRUBIN,TOTAL 0.3 mg/dL (0.2-1); CREATININE 1.7 mg/dL (0.55-1.3); PHOSPHOROUS 3.6 mg/dL (2.5-4.9); TOT PROT 8.2 g/dl (6.4-8.2)
[2020-09-21 16:08] LABS: GLIADIN ANTIBODY IGA 13 units (0-19); GLIADIN ANTIBODY IGG 1 units (0-19); TRANSGLUTAMINASE IGG 4 U/mL (0-5)
[2020-09-22] MEDS: POLYETHYLENE GLYCOL 3350 119 GM BTL PO SCH ×3 (05:55→22:02)
[2020-09-22] MEDS: ASPIRIN COATED 81 MG TABLET.EC PO SCH (10:17)
[2020-09-22] MEDS: PANTOPRAZOLE 40 MG TABLET PO SCH ×2 (10:18→22:02)
[2020-09-22 10:55] LABS: BASO % 1.1 % (0-2.0); EOS % 6.4 % (0-4.5); HEMATOCRIT 26.5 % (35.4-49); HEMOGLOBIN 8.9 GM/dL (11.7-16.9); LYMPH % 28.6 % (8-40); MCH 29.3 pg (25.7-33.7); MCHC 33.7 g/dl (32.0-35.9); MEAN CELL VOLUME 86.9 fl (80-96); MONO % 10.9 % (3.8-10.2); PLATELET COUNT 192 K/MM3 (134-434); RBC 3.05 M/mm3 (4.00-5.60); RDW 15.7 % (11.9-15.9); WHITE BLOOD COUNT 5.2 K/mm3 (4.0-10.0)
[2020-09-22 10:59] LABS: INR 1.29 (0.83-1.09); PROTHROMBIN TIME (PATIENT) 15.5 SEC (9.7-13.0)
[2020-09-22 11:22] LABS: CALCIUM 9.1 mg/dL (8.5-10.1)
[2020-09-22 11:23] LABS: BLOOD UREA NITROGEN 9.8 mg/dL (7-18)
[2020-09-22 11:26] LABS: CREATININE 1.7 mg/dL (0.55-1.3)
[2020-09-22] MEDS: LABETALOL HCL 200 MG TABLET (FP) PO SCH (22:02)
[2020-09-22] MEDS: ATORVASTATIN CA 40 MG TABLET (FP) PO SCH (22:02)
[2020-09-23] MEDS: POLYETHYLENE GLYCOL 3350 119 GM BTL PO SCH ×3 (05:55→23:56)
[2020-09-23] MEDS ORDERED: PEG 3350/NA SULF BICARB CL/KCL 4000 ML SOLN.RECON PO ONE (09:00)
[2020-09-23 09:44] LABS: BASO % 0.9 % (0-2.0); EOS % 5.9 % (0-4.5); HEMATOCRIT 26.2 % (35.4-49); HEMOGLOBIN 8.8 GM/dL (11.7-16.9); LYMPH % 23.3 % (8-40); MCH 29.5 pg (25.7-33.7); MCHC 33.8 g/dl (32.0-35.9); MEAN CELL VOLUME 87.3 fl (80-96); MEAN PLT VOLUME 8.3 fl (7.5-11.1); MONO % 10.2 % (3.8-10.2); NEUT % 59.7 % (42.8-82.8); PLATELET COUNT 187 K/MM3 (134-434); RDW 15.7 % (11.9-15.9); WHITE BLOOD COUNT 5.8 K/mm3 (4.0-10.0)
[2020-09-23 10:14] LABS: ALBUMIN 3.4 g/dl (3.4-5.0); BLOOD UREA NITROGEN 11.1 mg/dL (7-18); MAGNESIUM 1.8 mg/dL (1.8-2.4)
[2020-09-23 10:17] LABS: CREATININE 1.7 mg/dL (0.55-1.3); PHOSPHOROUS 4.4 mg/dL (2.5-4.9)
[2020-09-23 10:18] LABS: BILIRUBIN,TOTAL 0.9 mg/dL (0.2-1); TOT PROT 8.5 g/dl (6.4-8.2)
[2020-09-23] MEDS: amLODIPine BESYLATE 10 MG TABLET (FP) PO SCH (10:42)
[2020-09-23] MEDS: LABETALOL HCL 200 MG TABLET (FP) PO SCH ×2 (10:43→21:52)
[2020-09-23] MEDS: ASPIRIN COATED 81 MG TABLET.EC PO SCH (10:43)
[2020-09-23] MEDS: PANTOPRAZOLE 40 MG TABLET PO SCH ×2 (10:43→21:52)
[2020-09-23] MEDS ORDERED: BISACODYL 5 MG TABLET.DR (FP) PO ONE (20:00)
[2020-09-23] MEDS: ATORVASTATIN CA 40 MG TABLET (FP) PO SCH (21:52)
[2020-09-24] MEDS: POLYETHYLENE GLYCOL 3350 119 GM BTL PO SCH ×3 (05:05→14:08)
[2020-09-24 09:24] LABS: BASO % 0.9 % (0-2.0); EOS % 7.1 % (0-4.5); HEMATOCRIT 26.1 % (35.4-49); HEMOGLOBIN 8.6 GM/dL (11.7-16.9); MCH 28.9 pg (25.7-33.7); MCHC 33.1 g/dl (32.0-35.9); MEAN CELL VOLUME 87.3 fl (80-96); MEAN PLT VOLUME 8.4 fl (7.5-11.1); MONO % 11.6 % (3.8-10.2); NEUT % 57.4 % (42.8-82.8); PLATELET COUNT 174 K/MM3 (134-434); RBC 2.98 M/mm3 (4.00-5.60); RDW 15.5 % (11.9-15.9)
[2020-09-24] MEDS: PANTOPRAZOLE 40 MG TABLET PO SCH (10:11)
[2020-09-24] MEDS: amLODIPine BESYLATE 10 MG TABLET (FP) PO SCH (10:11)
[2020-09-24] MEDS: LABETALOL HCL 200 MG TABLET (FP) PO SCH (10:11)
[2020-09-24 10:24] LABS: ALBUMIN 3.3 g/dl (3.4-5.0); BLOOD UREA NITROGEN 10.7 mg/dL (7-18); MAGNESIUM 1.9 mg/dL (1.8-2.4)
[2020-09-24] MEDS: ASPIRIN COATED 81 MG TABLET.EC PO SCH (10:25)
[2020-09-24 10:27] LABS: CREATININE 1.6 mg/dL (0.55-1.3); PHOSPHOROUS 3.8 mg/dL (2.5-4.9)
[2020-09-24 10:28] LABS: BILIRUBIN,TOTAL 0.4 mg/dL (0.2-1)
[2020-09-24 10:29] LABS: TOT PROT 8.4 g/dl (6.4-8.2)
[2020-09-24 20:49] VITALS: BP 134/79; PULSE 69; TEMP 98.4
== END 2020-09-24 20:50 | disposition home or self-care (01) | DRG 378 ==
LOC: JER 12:12 → JERBED 14:02 → J5S 16:57
PROVIDERS: ATTEND Internal Medicine
PROC: 30233N1 Transfusion of Nonautologous Red Blood Cells into Peripheral Vein, Percutaneous Approach (ICD-10-PCS; 2020-09-18)
PROC: 0DBN8ZX Excision of Sigmoid Colon, Via Natural or Artificial Opening Endoscopic, Diagnostic (ICD-10-PCS; 2020-09-24)
PROC: 0DB68ZX Excision of Stomach, Via Natural or Artificial Opening Endoscopic, Diagnostic (ICD-10-PCS; principal; 2020-09-24 11:15)
DX: K92.2 Gastrointestinal hemorrhage, unspecified (principal); N17.9 Acute kidney failure, unspecified; I10 Essential (primary) hypertension; E78.5 Hyperlipidemia, unspecified; I25.10 Atherosclerotic heart disease of native coronary artery without angina pectoris; F03.90 Unspecified dementia, unspecified severity, without behavioral disturbance, psychotic disturbance, mood disturbance, and anxiety; K21.9 Gastro-esophageal reflux disease without esophagitis; F10.20 Alcohol dependence, uncomplicated; I69.992 Facial weakness following unspecified cerebrovascular disease; R47.81 Slurred speech; K59.09 Other constipation; R41.82 Altered mental status, unspecified; R55 Syncope and collapse; D63.8 Anemia in other chronic diseases classified elsewhere; K44.9 Diaphragmatic hernia without obstruction or gangrene; K29.60 Other gastritis without bleeding; K57.90 Diverticulosis of intestine, part unspecified, without perforation or abscess without bleeding; K31.819 Angiodysplasia of stomach and duodenum without bleeding; K63.5 Polyp of colon; K64.8 Other hemorrhoids; I12.9 Hypertensive chronic kidney disease with stage 1 through stage 4 chronic kidney disease, or unspecified chronic kidney disease; N18.9 Chronic kidney disease, unspecified; K57.30 Diverticulosis of large intestine without perforation or abscess without bleeding
CPT/HCPCS: 36415; 36430; 71045-TC-FY; 80048; 80053; 81003; 82272; 82570; 82607; 82728; 82746; 82784; 83516; 83540; 83550; 83735; 84100; 84300; 84484; 84540; 85025; 85045; 85610; 85730; 86140; 86850; 86900; 86901; 86922; 88305-TC; 93005; 93010; 97116-GP; 97162-GP; 99285-25; C9803; P9058; U0003; U0005

== ENCOUNTER 2020-09-27 12:52 | Inpatient (IN) | payer OTHER, MEDICARE ==
[2020-09-27] MEDS ORDERED: SODIUM CHLORIDE 1,000 ML IV STA ×2 (14:17→15:56)
[2020-09-27 15:24] LABS: BASO % 0.6 % (0-2.0); EOS % 8.8 % (0-4.5); HEMATOCRIT 26.7 % (35.4-49); HEMOGLOBIN 8.8 GM/dL (11.7-16.9); LYMPH % 32.7 % (8-40); MCH 29.3 pg (25.7-33.7); MCHC 33.1 g/dl (32.0-35.9); MEAN CELL VOLUME 88.6 fl (80-96); MONO % 10.9 % (3.8-10.2); PLATELET COUNT 194 K/MM3 (134-434); RBC 3.02 M/mm3 (4.00-5.60); RDW 15.3 % (11.9-15.9); WHITE BLOOD COUNT 3.9 K/mm3 (4.0-10.0)
[2020-09-27 15:46] LABS: CHLORIDE 105 mmol/L (98-107); SODIUM 136 mmol/L (136-145)
[2020-09-27 15:49] LABS: ALBUMIN 3.6 g/dl (3.4-5.0); ANION GAP 8 MMOL/L (8-16); BLOOD UREA NITROGEN 18.6 mg/dL (7-18); CALCIUM 8.9 mg/dL (8.5-10.1); CO2 23 mmol/L (21-32); GLUCOSE,RANDOM 101 mg/dL (74-106)
[2020-09-27 15:50] LABS: MAGNESIUM 1.9 mg/dL (1.8-2.4)
[2020-09-27 15:52] LABS: CREATININE 2.3 mg/dL (0.55-1.3); SGOT/AST 27 U/L (15-37); SGPT/ALT 27 U/L (13-61)
[2020-09-27 15:53] LABS: PHOSPHOROUS 3.8 mg/dL (2.5-4.9)
[2020-09-27 15:54] LABS: BILIRUBIN,TOTAL 0.2 mg/dL (0.2-1); TOT PROT 9.3 g/dl (6.4-8.2)
[2020-09-27 15:55] LABS: ALK PHOS 74 U/L (45-117)
[2020-09-27 18:10] LABS: URINE APPEARANCE CLEAR; URINE BILIRUBIN NEGATIVE (NEGATIVE); URINE COLOR YELLOW; URINE GLUCOSE (UA) NEGATIVE (NEGATIVE); URINE KETONE TRACE (NEGATIVE); URINE LEUK ESTERASE NEGATIVE (NEGATIVE); URINE NITRITE NEGATIVE (NEGATIVE); URINE PROTEIN TRACE (NEGATIVE); URINE UROBILINOGEN 0.2 mg/dL (0.2-1.0)
[2020-09-27] MEDS: LACTATED RINGERS SOLUTION 1,000 ML/1,000 ML INFUS.BAG IV SCH (21:52)
[2020-09-27] MEDS: LABETALOL HCL 200 MG TABLET (FP) PO SCH (21:57)
[2020-09-27 22:59] VITALS: BMI 20.9
[2020-09-28 08:11] LABS: BASO % 1.1 % (0-2.0); BLOOD UREA NITROGEN 15.7 mg/dL (7-18); CALCIUM 8.5 mg/dL (8.5-10.1); EOS % 9.5 % (0-4.5); HEMATOCRIT 23.4 % (35.4-49); LYMPH % 29.2 % (8-40); MCH 29.7 pg (25.7-33.7); MCHC 34.2 g/dl (32.0-35.9); MEAN CELL VOLUME 86.8 fl (80-96); NEUT % 46.2 % (42.8-82.8); PLATELET COUNT 180 K/MM3 (134-434); WHITE BLOOD COUNT 3.9 K/mm3 (4.0-10.0)
[2020-09-28 08:12] LABS: MAGNESIUM 1.6 mg/dL (1.8-2.4)
[2020-09-28 08:14] LABS: CREATININE 1.8 mg/dL (0.55-1.3); PHOSPHOROUS 3.3 mg/dL (2.5-4.9)
[2020-09-28 08:16] LABS: BILIRUBIN,TOTAL 0.2 mg/dL (0.2-1); TOT PROT 7.9 g/dl (6.4-8.2)
[2020-09-28] MEDS: ASPIRIN COATED 81 MG TABLET.EC PO SCH (09:38)
[2020-09-28] MEDS: PANTOPRAZOLE 40 MG TABLET PO SCH (09:38)
[2020-09-28] MEDS: CLOPIDOGREL BISULFATE 75 MG TABLET (FP) PO SCH (09:38)
[2020-09-28] MEDS: FERROUS SO4 325 MG TABLET (FP) PO SCH (09:38)
[2020-09-28] MEDS ORDERED: amLODIPine BESYLATE 10 MG TABLET (FP) PO SCH (10:00)
[2020-09-28] MEDS: LABETALOL HCL 200 MG TABLET (FP) PO SCH (11:03)
[2020-09-28 11:10] LABS: ANISOCYTOSIS 0; HELMET CELLS 0; HOWELL-JOLLY BODIES 0; MACROCYTOSIS 0; OVALOCYTE 0; PLATELET ESTIMATE NORMAL; ROULEAU 0; SICKELED CELLS 0; TARGET CELLS 0; TEAR DROP CELLS 0; TOXIC GRANULATION 0
[2020-09-28] MEDS: LACTATED RINGERS SOLUTION 1,000 ML/1,000 ML INFUS.BAG IV SCH (13:53)
[2020-09-28] MEDS: ATORVASTATIN CA 40 MG TABLET (FP) PO SCH (21:06)
[2020-09-29 07:58] LABS: EOS % 8.3 % (0-4.5); HEMATOCRIT 23.7 % (35.4-49); HEMOGLOBIN 8.2 GM/dL (11.7-16.9); LYMPH % 31.7 % (8-40); MCH 29.7 pg (25.7-33.7); MCHC 34.4 g/dl (32.0-35.9); MEAN CELL VOLUME 86.2 fl (80-96); MEAN PLT VOLUME 7.8 fl (7.5-11.1); PLATELET COUNT 186 K/MM3 (134-434); RBC 2.75 M/mm3 (4.00-5.60); RDW 15.2 % (11.9-15.9); WHITE BLOOD COUNT 4.5 K/mm3 (4.0-10.0)
[2020-09-29 08:23] LABS: CALCIUM 8.9 mg/dL (8.5-10.1)
[2020-09-29 08:24] LABS: BLOOD UREA NITROGEN 18.5 mg/dL (7-18)
[2020-09-29 08:27] LABS: CREATININE 1.7 mg/dL (0.55-1.3)
[2020-09-29 09:45] LABS: ANISOCYTOSIS 0; MACROCYTOSIS 0; PLATELET ESTIMATE NORMAL
[2020-09-29] MEDS: CLOPIDOGREL BISULFATE 75 MG TABLET (FP) PO SCH (10:35)
[2020-09-29] MEDS: PANTOPRAZOLE 40 MG TABLET PO SCH (10:35)
[2020-09-29] MEDS: ASPIRIN COATED 81 MG TABLET.EC PO SCH (10:35)
[2020-09-29] MEDS: FERROUS SO4 325 MG TABLET (FP) PO SCH (10:35)
[2020-09-29] MEDS: LACTATED RINGERS SOLUTION 1,000 ML/1,000 ML INFUS.BAG IV SCH (17:08)
[2020-09-29] MEDS: ATORVASTATIN CA 40 MG TABLET (FP) PO SCH (21:17)
[2020-09-30] MEDS: LACTATED RINGERS SOLUTION 1,000 ML/1,000 ML INFUS.BAG IV SCH (06:04)
[2020-09-30 08:04] LABS: BASO % 1.2 % (0-2.0); EOS % 6.4 % (0-4.5); HEMATOCRIT 24.6 % (35.4-49); HEMOGLOBIN 8.3 GM/dL (11.7-16.9); LYMPH % 29.7 % (8-40); MCH 29.3 pg (25.7-33.7); MCHC 33.7 g/dl (32.0-35.9); MEAN CELL VOLUME 86.8 fl (80-96); MEAN PLT VOLUME 7.8 fl (7.5-11.1); MONO % 11.9 % (3.8-10.2); NEUT % 50.8 % (42.8-82.8); PLATELET COUNT 192 K/MM3 (134-434); RBC 2.84 M/mm3 (4.00-5.60); RDW 15.3 % (11.9-15.9); WHITE BLOOD COUNT 4.7 K/mm3 (4.0-10.0)
[2020-09-30 08:18] LABS: ALBUMIN 3.3 g/dl (3.4-5.0); BLOOD UREA NITROGEN 20.3 mg/dL (7-18)
[2020-09-30 08:20] LABS: CALCIUM 8.9 mg/dL (8.5-10.1); MAGNESIUM 1.4 mg/dL (1.8-2.4)
[2020-09-30 08:22] LABS: CREATININE 1.8 mg/dL (0.55-1.3)
[2020-09-30 08:23] LABS: BILIRUBIN,TOTAL 0.3 mg/dL (0.2-1); TOT PROT 8.4 g/dl (6.4-8.2)
[2020-09-30] MEDS: FERROUS SO4 325 MG TABLET (FP) PO SCH (09:36)
[2020-09-30] MEDS: CLOPIDOGREL BISULFATE 75 MG TABLET (FP) PO SCH (09:36)
[2020-09-30] MEDS: ASPIRIN COATED 81 MG TABLET.EC PO SCH (09:36)
[2020-09-30] MEDS: PANTOPRAZOLE 40 MG TABLET PO SCH (09:37)
[2020-09-30 12:45] LABS: PH,URINE 7.5 (5.0-8.0); URINE APPEARANCE CLEAR; URINE BILIRUBIN NEGATIVE (NEGATIVE); URINE COLOR YELLOW; URINE GLUCOSE (UA) NEGATIVE (NEGATIVE); URINE KETONE NEGATIVE (NEGATIVE); URINE LEUK ESTERASE NEGATIVE (NEGATIVE); URINE NITRITE NEGATIVE (NEGATIVE); URINE PROTEIN NEGATIVE (NEGATIVE); URINE UROBILINOGEN 0.2 mg/dL (0.2-1.0)
[2020-09-30 14:27] VITALS: BP 152/91; PULSE 71; TEMP 98.5
== END 2020-09-30 17:12 | disposition home or self-care (01) | DRG 312 ==
LOC: JER 12:52 → JERBED 15:56 → J7W 20:00 → OBSVTOIN 09-30 11:04
PROVIDERS: ADMIT Internal Medicine; ATTEND Internal Medicine
DX: I95.2 Hypotension due to drugs (principal); N17.9 Acute kidney failure, unspecified; E86.0 Dehydration; I10 Essential (primary) hypertension; E78.5 Hyperlipidemia, unspecified; I25.10 Atherosclerotic heart disease of native coronary artery without angina pectoris; N18.9 Chronic kidney disease, unspecified; D50.9 Iron deficiency anemia, unspecified; I12.9 Hypertensive chronic kidney disease with stage 1 through stage 4 chronic kidney disease, or unspecified chronic kidney disease; D57.3 Sickle-cell trait; D63.1 Anemia in chronic kidney disease; F17.210 Nicotine dependence, cigarettes, uncomplicated; F10.20 Alcohol dependence, uncomplicated; T44.8X5A Adverse effect of centrally-acting and adrenergic-neuron-blocking agents, initial encounter; T46.1X5A Adverse effect of calcium-channel blockers, initial encounter
CPT/HCPCS: 36415; 71046-TC-FY; 80048; 80053; 81003; 82436; 82570; 82962; 83735; 84100; 84133; 84156; 84300; 84484; 85025; 86850; 86900; 86901; 93005; 93010; 99285-25; C9803; G0378; U0003; U0005

== ENCOUNTER 2021-11-05 20:11 | Inpatient (IN) | payer MEDICARE, OTHER ==
[2021-11-05 21:19] LABS: BASO % 0.3 % (0-2.0); EOS % 11.4 % (0-4.5); HEMATOCRIT 31.9 % (35.4-49); HEMOGLOBIN 10.5 GM/dL (11.7-16.9); LYMPH % 32.2 % (8-40); MCH 30.4 pg (25.7-33.7); MCHC 32.8 g/dl (32.0-35.9); MEAN CELL VOLUME 92.7 fl (80-96); MEAN PLT VOLUME 9.8 fl (7.5-11.1); MONO % 17.1 % (3.8-10.2); PLATELET COUNT 133 10^3/uL (134-434); RBC 3.45 M/mm3 (4.00-5.60); RDW 13.4 % (11.9-15.9); WHITE BLOOD COUNT 3.5 K/mm3 (4.0-10.0)
[2021-11-05 21:33] LABS: CALCIUM 9.3 mg/dL (8.5-10.1)
[2021-11-05 21:34] LABS: ALBUMIN 3.5 g/dl (3.4-5.0); BLOOD UREA NITROGEN 31.8 mg/dL (7-18); MAGNESIUM 1.9 mg/dL (1.8-2.4)
[2021-11-05 21:37] LABS: CREATININE 2.9 mg/dL (0.55-1.3)
[2021-11-05 21:38] LABS: BILIRUBIN,TOTAL 0.5 mg/dL (0.2-1); TOT PROT 8.8 g/dl (6.4-8.2)
[2021-11-05] MEDS ORDERED: SODIUM CHLORIDE 0.9% 500 ML INFUS.BAG IV ONE (22:14)
[2021-11-06] MEDS: SODIUM CHLORIDE 1,000 ML IV SCH (04:00)
[2021-11-06 05:12] LABS: HEMOGLOBIN 10.6 GM/dL (11.7-16.9); MCH 30.6 pg (25.7-33.7); MCHC 33.1 g/dl (32.0-35.9); MEAN CELL VOLUME 92.3 fl (80-96); MEAN PLT VOLUME 9.3 fl (7.5-11.1); PLATELET COUNT 115 10^3/uL (134-434); RBC 3.47 M/mm3 (4.00-5.60); RDW 13.5 % (11.9-15.9); WHITE BLOOD COUNT 3.3 K/mm3 (4.0-10.0)
[2021-11-06] MEDS ORDERED: HEPARIN NA (PORCINE) 5,000 UNITS/ML 1ML VIAL ONE ×2 (05:18→13:41)
[2021-11-06] MEDS: HEPARIN NA (PORCINE) 5,000 UNITS/ML 1ML VIAL SQ SCH ×3 (05:22→21:20)
[2021-11-06 06:09] LABS: EPI CELLS 4 /uL (0-25.1); HYALINE CASTS 1 /uL (0-3.1); PH,URINE 5.5 (5.0-8.0); URINE APPEARANCE CLEAR; URINE BACTERIA 3 /uL (0-1359); URINE BILIRUBIN NEGATIVE (NEGATIVE); URINE COLOR YELLOW; URINE GLUCOSE (UA) NEGATIVE (NEGATIVE); URINE KETONE TRACE (NEGATIVE); URINE LEUK ESTERASE NEGATIVE (NEGATIVE); URINE NITRITE NEGATIVE (NEGATIVE); URINE PROTEIN 1+ (NEGATIVE); URINE RBC 2 /uL (0-23.9); URINE UROBILINOGEN 0.2 mg/dL (0.2-1.0); URINE WBC 3 /uL (0-25.8)
[2021-11-06 07:19] LABS: INR 1.16 (0.83-1.09); PROTHROMBIN TIME (PATIENT) 13.4 SEC (9.7-13.0)
[2021-11-06 07:53] LABS: HEMATOCRIT 31.1 % (35.4-49); HEMOGLOBIN 10.3 GM/dL (11.7-16.9); MCH 30.6 pg (25.7-33.7); MCHC 33.1 g/dl (32.0-35.9); MEAN CELL VOLUME 92.4 fl (80-96); PLATELET COUNT 118 10^3/uL (134-434); RBC 3.36 M/mm3 (4.00-5.60); RDW 13.1 % (11.9-15.9); WHITE BLOOD COUNT 3.2 K/mm3 (4.0-10.0)
[2021-11-06 08:19] LABS: BILIRUBIN,TOTAL 0.5 mg/dL (0.2-1); PHOSPHOROUS 3.7 mg/dL (2.5-4.9); TOT PROT 8.2 g/dl (6.4-8.2)
[2021-11-06 08:21] LABS: ALBUMIN 3.2 g/dl (3.4-5.0); BLOOD UREA NITROGEN 28.4 mg/dL (7-18); CALCIUM 8.8 mg/dL (8.5-10.1); MAGNESIUM 1.9 mg/dL (1.8-2.4)
[2021-11-06 08:22] LABS: CREATININE 2.3 mg/dL (0.55-1.3)
[2021-11-06 10:00] LABS: ANISOCYTOSIS 1+; MACROCYTOSIS 1+; OVALOCYTE 1+
[2021-11-06] MEDS ORDERED: POLYETHYLENE GLYCOL (HEALTHYLAX) 3350 17 GM PACKET ONE (10:17)
[2021-11-06] MEDS ORDERED: ASPIRIN COATED 81 MG TABLET.EC ONE (10:18)
[2021-11-06] MEDS ORDERED: amLODIPine BESYLATE 10 MG TABLET (FP) ONE (10:18)
[2021-11-06] MEDS ORDERED: NICOTINE 21 MG/24 HOURS TOPICAL PATCH ONE (10:19)
[2021-11-06] MEDS: amLODIPine BESYLATE 10 MG TABLET (FP) PO SCH (10:31)
[2021-11-06] MEDS: ASPIRIN COATED 81 MG TABLET.EC PO SCH (10:31)
[2021-11-06] MEDS: LABETALOL HCL 200 MG TABLET (FP) PO SCH ×2 (10:31→21:22)
[2021-11-06] MEDS: POLYETHYLENE GLYCOL (HEALTHYLAX) 3350 17 GM PACKET PO SCH ×2 (10:31→21:23)
[2021-11-06] MEDS: NICOTINE 21 MG/24 HOURS TOPICAL PATCH TD SCH (10:31)
[2021-11-06 12:05] LABS: METHADONE, UR NEGATIVE (NEGATIVE)
[2021-11-06 12:06] LABS: OPIATES, URI NEGATIVE (NEGATIVE); PHENCYCLIDINE,URINE NEGATIVE (NEGATIVE); URINE BARBITURATES NEGATIVE (NEGATIVE)
[2021-11-06 12:10] LABS: URINE AMPHETAMINES NEGATIVE (NEGATIVE)
[2021-11-06 12:21] LABS: COCAINE, UR NEGATIVE (NEGATIVE); URINE BENZODIAZEPINES NEGATIVE (NEGATIVE)
[2021-11-06] MEDS: ATORVASTATIN CA 80 MG TABLET (FP) PO SCH (21:22)
[2021-11-07] MEDS: SODIUM CHLORIDE 1,000 ML IV SCH (02:46)
[2021-11-07] MEDS: HEPARIN NA (PORCINE) 5,000 UNITS/ML 1ML VIAL SQ SCH ×3 (05:45→21:17)
[2021-11-07 10:56] LABS: BASO % 1.3 % (0-2.0); EOS % 7.8 % (0-4.5); HEMATOCRIT 33.4 % (35.4-49); LYMPH % 19.8 % (8-40); MCH 30.5 pg (25.7-33.7); MEAN CELL VOLUME 92.4 fl (80-96); MONO % 7.7 % (3.8-10.2); NEUT % 63.4 % (42.8-82.8); PLATELET COUNT 118 10^3/uL (134-434); RBC 3.62 M/mm3 (4.00-5.60); RDW 13.3 % (11.9-15.9); WHITE BLOOD COUNT 3.9 K/mm3 (4.0-10.0)
[2021-11-07] MEDS: LABETALOL HCL 200 MG TABLET (FP) PO SCH ×2 (11:26→21:15)
[2021-11-07] MEDS: NICOTINE 21 MG/24 HOURS TOPICAL PATCH TD SCH (11:27)
[2021-11-07] MEDS: amLODIPine BESYLATE 10 MG TABLET (FP) PO SCH (11:27)
[2021-11-07] MEDS: ASPIRIN COATED 81 MG TABLET.EC PO SCH (11:27)
[2021-11-07] MEDS: POLYETHYLENE GLYCOL (HEALTHYLAX) 3350 17 GM PACKET PO SCH ×2 (11:27→21:17)
[2021-11-07 12:09] LABS: ALBUMIN 3.2 g/dl (3.4-5.0); BLOOD UREA NITROGEN 17.1 mg/dL (7-18); MAGNESIUM 1.8 mg/dL (1.8-2.4)
[2021-11-07 12:11] LABS: CREATININE 1.8 mg/dL (0.55-1.3)
[2021-11-07 12:12] LABS: PHOSPHOROUS 2.8 mg/dL (2.5-4.9)
[2021-11-07 12:13] LABS: BILIRUBIN,TOTAL 0.5 mg/dL (0.2-1); TOT PROT 8.3 g/dl (6.4-8.2)
[2021-11-07 13:12] LABS: HIV INTERPRETATION NEGATIVE (NEGATIVE)
[2021-11-07] MEDS: ATORVASTATIN CA 80 MG TABLET (FP) PO SCH (21:15)
[2021-11-08] MEDS: SODIUM CHLORIDE 1,000 ML IV SCH ×2 (05:46→19:08)
[2021-11-08] MEDS: HEPARIN NA (PORCINE) 5,000 UNITS/ML 1ML VIAL SQ SCH ×3 (05:47→21:48)
[2021-11-08 08:58] LABS: HEMATOCRIT 28.9 % (35.4-49); HEMOGLOBIN 9.5 GM/dL (11.7-16.9); MCH 30.4 pg (25.7-33.7); MCHC 32.8 g/dl (32.0-35.9); MEAN CELL VOLUME 92.6 fl (80-96); MEAN PLT VOLUME 9.7 fl (7.5-11.1); PLATELET COUNT 100 10^3/uL (134-434); RBC 3.12 M/mm3 (4.00-5.60); RDW 13.4 % (11.9-15.9); WHITE BLOOD COUNT 3.6 K/mm3 (4.0-10.0)
[2021-11-08] MEDS: POLYETHYLENE GLYCOL (HEALTHYLAX) 3350 17 GM PACKET PO SCH ×2 (10:02→21:48)
[2021-11-08] MEDS: ASPIRIN COATED 81 MG TABLET.EC PO SCH (10:02)
[2021-11-08] MEDS: NICOTINE 21 MG/24 HOURS TOPICAL PATCH TD SCH (10:02)
[2021-11-08] MEDS: LABETALOL HCL 200 MG TABLET (FP) PO SCH ×2 (10:02→21:48)
[2021-11-08] MEDS: amLODIPine BESYLATE 10 MG TABLET (FP) PO SCH (10:02)
[2021-11-08 10:46] LABS: ALBUMIN 2.7 g/dl (3.4-5.0); ANISOCYTOSIS 0; BILIRUBIN,TOTAL 0.4 mg/dL (0.2-1); BLOOD UREA NITROGEN 13.3 mg/dL (7-18); CALCIUM 8.6 mg/dL (8.5-10.1); CREATININE 1.6 mg/dL (0.55-1.3); HELMET CELLS 0; HOWELL-JOLLY BODIES 0; MACROCYTOSIS 0; OVALOCYTE 0; ROULEAU 0; SICKELED CELLS 0; TARGET CELLS 0; TEAR DROP CELLS 0; TOXIC GRANULATION 0
[2021-11-08] MEDS: ATORVASTATIN CA 80 MG TABLET (FP) PO SCH (21:48)
[2021-11-09] MEDS: SODIUM CHLORIDE 1,000 ML IV SCH ×2 (01:20→08:25)
[2021-11-09] MEDS: HEPARIN NA (PORCINE) 5,000 UNITS/ML 1ML VIAL SQ SCH ×3 (05:59→22:03)
[2021-11-09 09:03] LABS: LDH 106 U/L (87-246)
[2021-11-09] MEDS: NICOTINE 21 MG/24 HOURS TOPICAL PATCH TD SCH (09:39)
[2021-11-09] MEDS: POLYETHYLENE GLYCOL (HEALTHYLAX) 3350 17 GM PACKET PO SCH ×2 (09:39→22:04)
[2021-11-09] MEDS: ASPIRIN COATED 81 MG TABLET.EC PO SCH (09:39)
[2021-11-09] MEDS: amLODIPine BESYLATE 10 MG TABLET (FP) PO SCH (09:39)
[2021-11-09] MEDS: LABETALOL HCL 200 MG TABLET (FP) PO SCH ×2 (09:47→22:01)
[2021-11-09] MEDS: ATORVASTATIN CA 80 MG TABLET (FP) PO SCH (22:03)
[2021-11-10] MEDS: HEPARIN NA (PORCINE) 5,000 UNITS/ML 1ML VIAL SQ SCH ×3 (06:15→23:00)
[2021-11-10] MEDS: SODIUM CHLORIDE 1,000 ML IV SCH (08:49)
[2021-11-10] MEDS: LABETALOL HCL 200 MG TABLET (FP) PO SCH ×2 (10:21→23:00)
[2021-11-10] MEDS: NICOTINE 21 MG/24 HOURS TOPICAL PATCH TD SCH (10:22)
[2021-11-10] MEDS: amLODIPine BESYLATE 10 MG TABLET (FP) PO SCH (10:22)
[2021-11-10] MEDS: ASPIRIN COATED 81 MG TABLET.EC PO SCH (10:22)
[2021-11-10] MEDS: POLYETHYLENE GLYCOL (HEALTHYLAX) 3350 17 GM PACKET PO SCH ×2 (10:24→23:00)
[2021-11-10 11:04] LABS: BASO % 1.1 % (0-2.0); EOS % 8.8 % (0-4.5); HEMATOCRIT 30.1 % (35.4-49); HEMOGLOBIN 9.8 GM/dL (11.7-16.9); LYMPH % 32.8 % (8-40); MCH 30.3 pg (25.7-33.7); MCHC 32.7 g/dl (32.0-35.9); MEAN CELL VOLUME 92.6 fl (80-96); MEAN PLT VOLUME 10.6 fl (7.5-11.1); MONO % 10.3 % (3.8-10.2); PLATELET COUNT 118 10^3/uL (134-434); RBC 3.25 M/mm3 (4.00-5.60); RDW 13.4 % (11.9-15.9)
[2021-11-10 11:52] LABS: HEPATITIS B SURFACE AG MATERN NON-REACTIVE (NONREACTIVE)
[2021-11-10 11:57] LABS: ALBUMIN 2.7 g/dl (3.4-5.0); BLOOD UREA NITROGEN 9.8 mg/dL (7-18); CALCIUM 8.5 mg/dL (8.5-10.1)
[2021-11-10 12:00] LABS: CREATININE 1.4 mg/dL (0.55-1.3)
[2021-11-10 12:02] LABS: BILIRUBIN,TOTAL 0.5 mg/dL (0.2-1)
[2021-11-10 15:22] VITALS: BMI 18.1
[2021-11-10] MEDS: ATORVASTATIN CA 80 MG TABLET (FP) PO SCH (23:00)
[2021-11-11] MEDS: HEPARIN NA (PORCINE) 5,000 UNITS/ML 1ML VIAL SQ SCH ×3 (05:50→23:19)
[2021-11-11] MEDS: ASPIRIN COATED 81 MG TABLET.EC PO SCH (10:14)
[2021-11-11] MEDS: NICOTINE 21 MG/24 HOURS TOPICAL PATCH TD SCH (10:14)
[2021-11-11] MEDS: POLYETHYLENE GLYCOL (HEALTHYLAX) 3350 17 GM PACKET PO SCH ×2 (10:14→23:19)
[2021-11-11] MEDS: amLODIPine BESYLATE 10 MG TABLET (FP) PO SCH (10:14)
[2021-11-11] MEDS: LABETALOL HCL 200 MG TABLET (FP) PO SCH ×2 (10:15→23:19)
[2021-11-11 14:07] LABS: PARV B19 IGG 5.4 index (0.0-0.8); PARV B19 IGM 0.3 index (0.0-0.8)
[2021-11-11] MEDS: ATORVASTATIN CA 80 MG TABLET (FP) PO SCH (23:19)
[2021-11-12] MEDS: HEPARIN NA (PORCINE) 5,000 UNITS/ML 1ML VIAL SQ SCH ×3 (06:29→21:41)
[2021-11-12] MEDS ORDERED: PANTOPRAZOLE 20 MG TABLET PO SCH (10:00)
[2021-11-12] MEDS: NICOTINE 21 MG/24 HOURS TOPICAL PATCH TD SCH (10:22)
[2021-11-12] MEDS: POLYETHYLENE GLYCOL (HEALTHYLAX) 3350 17 GM PACKET PO SCH ×2 (10:22→21:41)
[2021-11-12] MEDS: amLODIPine BESYLATE 10 MG TABLET (FP) PO SCH (10:22)
[2021-11-12] MEDS: ASPIRIN COATED 81 MG TABLET.EC PO SCH (10:22)
[2021-11-12] MEDS: LABETALOL HCL 200 MG TABLET (FP) PO SCH ×2 (10:22→21:42)
[2021-11-12 12:38] LABS: BASO % 2.9 % (0-2.0); EOS % 8.8 % (0-4.5); HEMATOCRIT 29.9 % (35.4-49); HEMOGLOBIN 9.8 GM/dL (11.7-16.9); MCH 30.2 pg (25.7-33.7); MCHC 32.7 g/dl (32.0-35.9); MEAN CELL VOLUME 92.4 fl (80-96); MEAN PLT VOLUME 10.5 fl (7.5-11.1); MONO % 14.6 % (3.8-10.2); NEUT % 45.7 % (42.8-82.8); PLATELET COUNT 128 10^3/uL (134-434); RBC 3.23 M/mm3 (4.00-5.60); RDW 13.3 % (11.9-15.9); WHITE BLOOD COUNT 3.5 K/mm3 (4.0-10.0)
[2021-11-12 12:46] LABS: INR 1.31 (0.83-1.09); PROTHROMBIN TIME (PATIENT) 15.1 SEC (9.7-13.0)
[2021-11-12 14:07] LABS: ALBUMIN 2.8 g/dl (3.4-5.0); ALK PHOS 48 U/L (45-117); ANION GAP 7 MMOL/L (8-16); BILIRUBIN,TOTAL 0.4 mg/dL (0.2-1); BLOOD UREA NITROGEN 15.2 mg/dL (7-18); CALCIUM 8.7 mg/dL (8.5-10.1); CHLORIDE 108 mmol/L (98-107); CO2 24 mmol/L (21-32); CREATININE 1.4 mg/dL (0.55-1.3); GLUCOSE,RANDOM 103 mg/dL (74-106); SGOT/AST 36 U/L (15-37); SGPT/ALT 32 U/L (13-61); SODIUM 139 mmol/L (136-145); TOT PROT 7.4 g/dl (6.4-8.2)
[2021-11-12] MEDS: ATORVASTATIN CA 80 MG TABLET (FP) PO SCH (21:41)
[2021-11-13 09:25] LABS: INR 1.34 (0.83-1.09); PROTHROMBIN TIME (PATIENT) 15.4 SEC (9.7-13.0)
[2021-11-13] MEDS ORDERED: PANTOPRAZOLE 40 MG TABLET PO SCH (10:00)
[2021-11-13 10:03] LABS: CALCIUM 8.6 mg/dL (8.5-10.1)
[2021-11-13 10:07] LABS: ALBUMIN 2.7 g/dl (3.4-5.0); BLOOD UREA NITROGEN 19.9 mg/dL (7-18)
[2021-11-13 10:08] LABS: BILIRUBIN,TOTAL 0.5 mg/dL (0.2-1); TOT PROT 7.1 g/dl (6.4-8.2)
[2021-11-13 10:10] LABS: CREATININE 1.6 mg/dL (0.55-1.3)
[2021-11-13] MEDS: NICOTINE 21 MG/24 HOURS TOPICAL PATCH TD SCH (10:54)
[2021-11-13] MEDS: ASPIRIN COATED 81 MG TABLET.EC PO SCH (10:54)
[2021-11-13] MEDS: POLYETHYLENE GLYCOL (HEALTHYLAX) 3350 17 GM PACKET PO SCH (10:54)
[2021-11-13] MEDS: LABETALOL HCL 200 MG TABLET (FP) PO SCH (10:54)
[2021-11-13] MEDS: amLODIPine BESYLATE 10 MG TABLET (FP) PO SCH (10:54)
[2021-11-13 15:56] VITALS: BP 105/64; PULSE 74; TEMP 97.3
[2021-11-13 18:07] LABS: HGB SOLUBILITY Positive (Negative)
[2021-11-14 08:08] LABS: CARCINOEMBRYONIC ANTIGEN 1.1 ng/mL (0.0-4.7)
== END 2021-11-13 16:17 | DRG 683 ==
LOC: JER 20:11 → JERBED 20:37 → UNDOADMOB 20:37 → OBSVTOIN 11-06 00:53 → INTOOBSV 11-06 00:53 → J8W 11-06 15:34 → OBSVTOIN 11-07 09:29
PROVIDERS: ADMIT Internal Medicine
PROC: 0DB78ZX Excision of Stomach, Pylorus, Via Natural or Artificial Opening Endoscopic, Diagnostic (ICD-10-PCS; 2021-11-13)
PROC: 0DB68ZX Excision of Stomach, Via Natural or Artificial Opening Endoscopic, Diagnostic (ICD-10-PCS; 2021-11-13)
PROC: 0DB98ZX Excision of Duodenum, Via Natural or Artificial Opening Endoscopic, Diagnostic (ICD-10-PCS; principal; 2021-11-13 09:00)
DX: N17.9 Acute kidney failure, unspecified (principal); Z68.1 Body mass index [BMI] 19.9 or less, adult; D61.818 Other pancytopenia; G81.91 Hemiplegia, unspecified affecting right dominant side; M84.48XA Pathological fracture, other site, initial encounter for fracture; R62.7 Adult failure to thrive; E78.5 Hyperlipidemia, unspecified; R63.0 Anorexia; K25.9 Gastric ulcer, unspecified as acute or chronic, without hemorrhage or perforation; I25.10 Atherosclerotic heart disease of native coronary artery without angina pectoris; I95.1 Orthostatic hypotension; D64.9 Anemia, unspecified; F03.90 Unspecified dementia, unspecified severity, without behavioral disturbance, psychotic disturbance, mood disturbance, and anxiety; K29.60 Other gastritis without bleeding; K59.00 Constipation, unspecified; I12.9 Hypertensive chronic kidney disease with stage 1 through stage 4 chronic kidney disease, or unspecified chronic kidney disease; E11.22 Type 2 diabetes mellitus with diabetic chronic kidney disease; N18.9 Chronic kidney disease, unspecified; K31.7 Polyp of stomach and duodenum; M47.816 Spondylosis without myelopathy or radiculopathy, lumbar region; K44.9 Diaphragmatic hernia without obstruction or gangrene; Z86.73 Personal history of transient ischemic attack (TIA), and cerebral infarction without residual deficits
CPT/HCPCS: 36415; 70450-TC; 71045-TC-FY; 71250-TC; 72148-TC; 74176-TC; 76705-TC; 76775-TC; 80053; 80061; 80307; 81003; 82105; 82378; 82550; 82570; 82607; 82728; 82746; 82747; 82784; 82962; 83021; 83540; 83550; 83615; 83735; 83883; 84100; 84155; 84156; 84165; 84300; 84439; 84443; 84484; 85014; 85025; 85027; 85045; 85610; 85651; 85660; 86038; 86140; 86301; 86431; 86480; 86682; 86704; 86705; 86747; 87040; 87086; 87209; 87338; 87340; 87389; 87517; 87799; 88300-TC; 88305-TC; 93005; 93010; 97116-GP; 97161-GP; 99291; 99292; C9803-CS; G0378; J1644; U0003; U0005

== ENCOUNTER 2022-02-07 13:25 | Inpatient (IN) | payer OTHER ==
[2022-02-07] MEDS ORDERED: LIDOCAINE 5% TOPICAL PATCH TP ONE (14:55)
[2022-02-07] MEDS ORDERED: LIDOCAINE 5% TOPICAL PATCH ONE (15:00)
[2022-02-07 15:54] LABS: BASO % 2.3 % (0-2.0); EOS % 3.3 % (0-4.5); HEMATOCRIT 32.8 % (35.4-49); HEMOGLOBIN 11.1 GM/dL (11.7-16.9); LYMPH % 23.1 % (8-40); MCH 31.2 pg (25.7-33.7); MCHC 33.8 g/dl (32.0-35.9); MEAN CELL VOLUME 92.3 fl (80-96); MEAN PLT VOLUME 8.5 fl (7.5-11.1); NEUT % 59.3 % (42.8-82.8); PLATELET COUNT 241 10^3/uL (134-434); RBC 3.56 M/mm3 (4.00-5.60); RDW 15.5 % (11.9-15.9); WHITE BLOOD COUNT 4.4 K/mm3 (4.0-10.0)
[2022-02-07 16:15] LABS: EPI CELLS 8 /uL (0-25.1); HYALINE CASTS 0 /uL (0-3.1); PH,URINE 5.5 (5.0-8.0); URINE APPEARANCE CLEAR; URINE BACTERIA 2 /uL (0-1359); URINE BILIRUBIN NEGATIVE (NEGATIVE); URINE COLOR YELLOW; URINE GLUCOSE (UA) NEGATIVE (NEGATIVE); URINE KETONE NEGATIVE (NEGATIVE); URINE LEUK ESTERASE NEGATIVE (NEGATIVE); URINE NITRITE NEGATIVE (NEGATIVE); URINE PROTEIN 1+ (NEGATIVE); URINE RBC 11 /uL (0-23.9); URINE UROBILINOGEN 0.2 mg/dL (0.2-1.0); URINE WBC 3 /uL (0-25.8)
[2022-02-07 16:16] LABS: CHLORIDE 105 mmol/L (98-107); SODIUM 130 mmol/L (136-145)
[2022-02-07 16:19] LABS: ALBUMIN 3.3 g/dl (3.4-5.0); BLOOD UREA NITROGEN 28.6 mg/dL (7-18); CO2 21 mmol/L (21-32); GLUCOSE,RANDOM 85 mg/dL (74-106)
[2022-02-07 16:22] LABS: CREATININE 2.3 mg/dL (0.55-1.3)
[2022-02-07 16:23] LABS: BILIRUBIN,TOTAL 0.2 mg/dL (0.2-1); TOT PROT 9.8 g/dl (6.4-8.2)
[2022-02-07 16:26] LABS: ALK PHOS 50 U/L (45-117); ANION GAP 5 MMOL/L (8-16); SGOT/AST 145 U/L (15-37); SGPT/ALT 50 U/L (13-61)
[2022-02-07 17:53] LABS: CALCIUM 9.2 mg/dL (8.5-10.1)
[2022-02-07 17:57] LABS: CREATININE 2.2 mg/dL (0.55-1.3)
[2022-02-07] MEDS ORDERED: LIDOCAINE PATCH REMOVAL MC SCH (22:00)
[2022-02-07] MEDS ORDERED: SENNOSIDES 8.6MG TABLET (FP) PO PRN (22:22)
[2022-02-07] MEDS ORDERED: SODIUM CHLORIDE 1,000 ML IV SCH (22:30)
[2022-02-07 22:44] LABS: CALCIUM 9.2 mg/dL (8.5-10.1)
[2022-02-07 22:45] LABS: ALBUMIN 3.4 g/dl (3.4-5.0); BLOOD UREA NITROGEN 28.2 mg/dL (7-18)
[2022-02-07 22:47] LABS: CREATININE 1.9 mg/dL (0.55-1.3)
[2022-02-07 22:49] LABS: BILIRUBIN,TOTAL 0.3 mg/dL (0.2-1); TOT PROT 8.8 g/dl (6.4-8.2)
[2022-02-07] MEDS ORDERED: ACETAMINOPHEN 500 MG TABLET (FP) PO PRN (23:16)
[2022-02-07] MEDS ORDERED: LORazepam 2 MG TABLET PO PRN (23:18)
[2022-02-08 04:12] VITALS: BMI 19.1
[2022-02-08] MEDS ORDERED: LORazepam 1 MG TABLET PO PRN ×2 (05:14→20:29)
[2022-02-08] MEDS: HEPARIN NA (PORCINE) 5,000 UNITS/ML 1ML VIAL SQ SCH ×3 (06:02→21:14)
[2022-02-08] MEDS ORDERED: PANTOPRAZOLE 40 MG TABLET PO SCH (10:00)
[2022-02-08] MEDS ORDERED: NICOTINE 21 MG/24 HOURS TOPICAL PATCH TD SCH (10:00)
[2022-02-08 10:35] LABS: HEMATOCRIT 33.8 % (35.4-49); HEMOGLOBIN 11.1 GM/dL (11.7-16.9); MCH 30.9 pg (25.7-33.7); MCHC 32.7 g/dl (32.0-35.9); MEAN CELL VOLUME 94.4 fl (80-96); PLATELET COUNT 160 10^3/uL (134-434); RBC 3.58 M/mm3 (4.00-5.60); RDW 14.8 % (11.9-15.9); WHITE BLOOD COUNT 3.1 K/mm3 (4.0-10.0)
[2022-02-08 11:00] LABS: ALBUMIN 3.4 g/dl (3.4-5.0); BLOOD UREA NITROGEN 28.7 mg/dL (7-18); CALCIUM 9.2 mg/dL (8.5-10.1); MAGNESIUM 1.9 mg/dL (1.8-2.4)
[2022-02-08 11:03] LABS: CREATININE 2.1 mg/dL (0.55-1.3)
[2022-02-08 11:04] LABS: BILIRUBIN,TOTAL 0.3 mg/dL (0.2-1); PHOSPHOROUS 4.2 mg/dL (2.5-4.9); TOT PROT 8.9 g/dl (6.4-8.2)
[2022-02-08] MEDS ORDERED: ASPIRIN 81 MG CHEWABLE TABLETS PO SCH (12:15)
[2022-02-08 13:05] LABS: HEMATOCRIT 34.5 % (35.4-49); HEMOGLOBIN 11.1 GM/dL (11.7-16.9); MCH 30.1 pg (25.7-33.7); MCHC 32.1 g/dl (32.0-35.9); MEAN CELL VOLUME 93.9 fl (80-96); MEAN PLT VOLUME 9.3 fl (7.5-11.1); PLATELET COUNT 173 10^3/uL (134-434); RBC 3.68 M/mm3 (4.00-5.60); RDW 14.7 % (11.9-15.9); WHITE BLOOD COUNT 3.6 K/mm3 (4.0-10.0)
[2022-02-08 13:20] LABS: CALCIUM 9.4 mg/dL (8.5-10.1)
[2022-02-08 13:21] LABS: ALBUMIN 3.3 g/dl (3.4-5.0); MAGNESIUM 2.1 mg/dL (1.8-2.4)
[2022-02-08 13:25] LABS: CREATININE 1.9 mg/dL (0.55-1.3); TOT PROT 8.6 g/dl (6.4-8.2)
[2022-02-08 13:26] LABS: BILIRUBIN,TOTAL 0.2 mg/dL (0.2-1)
[2022-02-08 13:34] LABS: ANISOCYTOSIS 2+; MACROCYTOSIS 0; PLATELET ESTIMATE DECREASED
[2022-02-08] MEDS ORDERED: SODIUM CHLORIDE 1,000 ML IV SCH (20:29)
[2022-02-08] MEDS ORDERED: ACETAMINOPHEN 500 MG TABLET (FP) PO PRN (20:29)
[2022-02-08] MEDS ORDERED: SENNOSIDES 8.6MG TABLET (FP) PO PRN (20:29)
[2022-02-08] MEDS: ATORVASTATIN CA 80 MG TABLET (FP) PO SCH (21:13)
[2022-02-08] MEDS ORDERED: ATORVASTATIN CA 80 MG TABLET (FP) PO SCH (22:00)
[2022-02-09] MEDS: HEPARIN NA (PORCINE) 5,000 UNITS/ML 1ML VIAL SQ SCH ×3 (06:02→21:17)
[2022-02-09 09:00] LABS: EOS % 4.7 % (0-4.5); HEMATOCRIT 33.1 % (35.4-49); LYMPH % 30.8 % (8-40); MCHC 33.1 g/dl (32.0-35.9); MEAN CELL VOLUME 93.5 fl (80-96); MEAN PLT VOLUME 8.4 fl (7.5-11.1); MONO % 11.5 % (3.8-10.2); PLATELET COUNT 181 10^3/uL (134-434); RBC 3.54 M/mm3 (4.00-5.60); RDW 14.8 % (11.9-15.9); WHITE BLOOD COUNT 4.6 K/mm3 (4.0-10.0)
[2022-02-09 09:16] LABS: CALCIUM 9.1 mg/dL (8.5-10.1)
[2022-02-09 09:18] LABS: ALBUMIN 3.3 g/dl (3.4-5.0); BLOOD UREA NITROGEN 27.5 mg/dL (7-18)
[2022-02-09 09:20] LABS: CREATININE 1.8 mg/dL (0.55-1.3)
[2022-02-09 09:21] LABS: TOT PROT 8.6 g/dl (6.4-8.2)
[2022-02-09 09:25] LABS: BILIRUBIN,TOTAL 0.3 mg/dL (0.2-1)
[2022-02-09] MEDS: PANTOPRAZOLE 40 MG TABLET PO SCH (09:26)
[2022-02-09] MEDS: ASPIRIN 81 MG CHEWABLE TABLETS PO SCH (09:26)
[2022-02-09] MEDS: NICOTINE 21 MG/24 HOURS TOPICAL PATCH TD SCH (09:26)
[2022-02-09] MEDS: CLOPIDOGREL BISULFATE 75 MG TABLET (FP) PO SCH (09:26)
[2022-02-09] MEDS ORDERED: BISACODYL 5 MG TABLET.DR (FP) PO PRN (10:33)
[2022-02-09] MEDS: POLYETHYLENE GLYCOL (HEALTHYLAX) 3350 17 GM PACKET PO SCH ×2 (11:22→21:16)
[2022-02-09] MEDS: amLODIPine BESYLATE 10 MG TABLET (FP) PO SCH (14:27)
[2022-02-09] MEDS: DOCUSATE SODIUM 100 MG CAPSULE (FP) PO SCH (21:16)
[2022-02-09] MEDS: ATORVASTATIN CA 80 MG TABLET (FP) PO SCH (21:16)
[2022-02-10] MEDS: HEPARIN NA (PORCINE) 5,000 UNITS/ML 1ML VIAL SQ SCH ×3 (05:16→22:46)
[2022-02-10 08:18] LABS: BASO % 1.1 % (0-2.0); EOS % 5.1 % (0-4.5); HEMATOCRIT 31.3 % (35.4-49); HEMOGLOBIN 10.5 GM/dL (11.7-16.9); LYMPH % 28.2 % (8-40); MCH 31.4 pg (25.7-33.7); MCHC 33.6 g/dl (32.0-35.9); MEAN CELL VOLUME 93.4 fl (80-96); MEAN PLT VOLUME 8.6 fl (7.5-11.1); MONO % 14.6 % (3.8-10.2); PLATELET COUNT 173 10^3/uL (134-434); RBC 3.35 M/mm3 (4.00-5.60); RDW 14.4 % (11.9-15.9); WHITE BLOOD COUNT 4.4 K/mm3 (4.0-10.0)
[2022-02-10 08:31] LABS: BLOOD UREA NITROGEN 25.4 mg/dL (7-18); MAGNESIUM 1.9 mg/dL (1.8-2.4)
[2022-02-10 08:34] LABS: CREATININE 1.7 mg/dL (0.55-1.3)
[2022-02-10 08:36] LABS: BILIRUBIN,TOTAL 0.2 mg/dL (0.2-1); TOT PROT 8.1 g/dl (6.4-8.2)
[2022-02-10] MEDS: ASPIRIN 81 MG CHEWABLE TABLETS PO SCH (09:17)
[2022-02-10] MEDS: PANTOPRAZOLE 40 MG TABLET PO SCH (09:17)
[2022-02-10] MEDS: POLYETHYLENE GLYCOL (HEALTHYLAX) 3350 17 GM PACKET PO SCH ×2 (09:17→22:46)
[2022-02-10] MEDS: NICOTINE 21 MG/24 HOURS TOPICAL PATCH TD SCH (09:17)
[2022-02-10] MEDS: CLOPIDOGREL BISULFATE 75 MG TABLET (FP) PO SCH (09:17)
[2022-02-10] MEDS: amLODIPine BESYLATE 10 MG TABLET (FP) PO SCH (09:17)
[2022-02-10] MEDS: ATORVASTATIN CA 80 MG TABLET (FP) PO SCH (22:46)
[2022-02-10] MEDS: DOCUSATE SODIUM 100 MG CAPSULE (FP) PO SCH (22:46)
[2022-02-11 00:52] VITALS: RESP 18
[2022-02-11] MEDS: HEPARIN NA (PORCINE) 5,000 UNITS/ML 1ML VIAL SQ SCH ×2 (06:25→13:17)
[2022-02-11 06:40] VITALS: TEMP 98.9
[2022-02-11 08:49] LABS: BASO % 1.3 % (0-2.0); EOS % 5.2 % (0-4.5); HEMOGLOBIN 10.6 GM/dL (11.7-16.9); LYMPH % 29.1 % (8-40); MCH 30.9 pg (25.7-33.7); MCHC 33.2 g/dl (32.0-35.9); MEAN CELL VOLUME 93.3 fl (80-96); MEAN PLT VOLUME 8.8 fl (7.5-11.1); MONO % 13.3 % (3.8-10.2); NEUT % 51.1 % (42.8-82.8); PLATELET COUNT 196 10^3/uL (134-434); RBC 3.43 M/mm3 (4.00-5.60); RDW 14.5 % (11.9-15.9); WHITE BLOOD COUNT 4.4 K/mm3 (4.0-10.0)
[2022-02-11 09:11] LABS: ALBUMIN 3.2 g/dl (3.4-5.0); CALCIUM 9.4 mg/dL (8.5-10.1)
[2022-02-11 09:13] LABS: BLOOD UREA NITROGEN 26.6 mg/dL (7-18)
[2022-02-11 09:15] LABS: BILIRUBIN,TOTAL 0.3 mg/dL (0.2-1); CREATININE 1.8 mg/dL (0.55-1.3); TOT PROT 8.5 g/dl (6.4-8.2)
[2022-02-11] MEDS: NICOTINE 21 MG/24 HOURS TOPICAL PATCH TD SCH (10:01)
[2022-02-11] MEDS: amLODIPine BESYLATE 10 MG TABLET (FP) PO SCH (10:02)
[2022-02-11] MEDS: POLYETHYLENE GLYCOL (HEALTHYLAX) 3350 17 GM PACKET PO SCH (10:02)
[2022-02-11] MEDS: CLOPIDOGREL BISULFATE 75 MG TABLET (FP) PO SCH (10:02)
[2022-02-11] MEDS: PANTOPRAZOLE 40 MG TABLET PO SCH (10:02)
[2022-02-11] MEDS: ASPIRIN 81 MG CHEWABLE TABLETS PO SCH (10:02)
[2022-02-11 16:29] VITALS: BP 132/80; PULSE 72
== END 2022-02-11 16:52 | DRG 65 ==
LOC: JER 13:25 → JERBED 18:27 → J5S 02-08 00:07 → J4S 02-08 20:21
PROVIDERS: ADMIT Internal Medicine; ATTEND Nurse Practitioner Family
DX: I63.89 Other cerebral infarction (principal); I69.351 Hemiplegia and hemiparesis following cerebral infarction affecting right dominant side; N17.9 Acute kidney failure, unspecified; E78.5 Hyperlipidemia, unspecified; D64.9 Anemia, unspecified; K74.60 Unspecified cirrhosis of liver; F03.90 Unspecified dementia, unspecified severity, without behavioral disturbance, psychotic disturbance, mood disturbance, and anxiety; I25.10 Atherosclerotic heart disease of native coronary artery without angina pectoris; I12.9 Hypertensive chronic kidney disease with stage 1 through stage 4 chronic kidney disease, or unspecified chronic kidney disease; N18.9 Chronic kidney disease, unspecified; E87.5 Hyperkalemia; F10.20 Alcohol dependence, uncomplicated; I65.22 Occlusion and stenosis of left carotid artery; F17.210 Nicotine dependence, cigarettes, uncomplicated
CPT/HCPCS: 36415; 70450-TC; 70551-TC; 71045-TC-FY; 74230-TC-FY; 80048; 80053; 80061; 81003; 82550; 83036; 83735; 84100; 84439; 84443; 85025; 85027; 87086; 92611-GN; 93005; 93010; 93880-TC; 97116-GP; 97162-GP; 99285-25; C9803-CS; J1644; U0003; U0005

== ENCOUNTER 2022-09-24 15:14 | Inpatient (IN) | payer OTHER ==
[2022-09-24] MEDS ORDERED: ACETAMINOPHEN 1000 MG/100 ML BAG IVPB ONE (16:14)
[2022-09-24] MEDS ORDERED: SODIUM CHLORIDE 0.9% 1000 ML INFUS.BAG IV ONE ×2 (16:17→18:57)
[2022-09-24] MEDS ORDERED: ACETAMINOPHEN INJECTION 100 ML IVPB ONE (16:39)
[2022-09-24 17:42] LABS: BASO % 0.8 % (0-2.0); EOS % 0.1 % (0-4.5); HEMATOCRIT 32.2 % (35.4-49); HEMOGLOBIN 10.9 GM/dL (11.7-16.9); LYMPH % 9.9 % (8-40); MCH 30.5 pg (25.7-33.7); MCHC 33.8 g/dl (32.0-35.9); MEAN CELL VOLUME 90.2 fl (80-96); MONO % 12.4 % (3.8-10.2); NEUT % 76.8 % (42.8-82.8); PLATELET COUNT 198 10^3/uL (134-434); RBC 3.57 M/mm3 (4.00-5.60); RDW 14.4 % (11.9-15.9); WHITE BLOOD COUNT 7.8 K/mm3 (4.0-10.0)
[2022-09-24 17:47] LABS: INR 1.17 (0.83-1.09); PROTHROMBIN TIME (PATIENT) 13.6 SEC (9.7-13.0)
[2022-09-24 17:50] LABS: ACTIVATED PTT 30.3 SECONDS (25.2-36.5)
[2022-09-24 18:12] LABS: POTASSIUM 5.1 mmol/L (3.5-5.1)
[2022-09-24 18:15] LABS: ALBUMIN 3.9 g/dl (3.4-5.0); BLOOD UREA NITROGEN 29.3 mg/dL (7-18); CALCIUM 9.7 mg/dL (8.5-10.1); MAGNESIUM 1.8 mg/dL (1.8-2.4)
[2022-09-24 18:18] LABS: CREATININE 2.1 mg/dL (0.55-1.3)
[2022-09-24 18:20] LABS: BILIRUBIN,TOTAL 0.7 mg/dL (0.2-1)
[2022-09-24] MEDS ORDERED: LACTATED RINGERS SOLUTION 1,000 ML/1,000 ML INFUS.BAG IV SCH ×2 (21:00→22:51)
[2022-09-24] MEDS ORDERED: SENNOSIDES 8.6MG TABLET (FP) PO PRN (22:44)
[2022-09-24] MEDS: LABETALOL HCL 200 MG TABLET (FP) PO SCH (23:24)
[2022-09-25 00:54] VITALS: BMI 19.0
[2022-09-25 09:03] LABS: BASO % 1.2 % (0-2.0); EOS % 1.7 % (0-4.5); HEMATOCRIT 28.6 % (35.4-49); HEMOGLOBIN 9.8 GM/dL (11.7-16.9); LYMPH % 20.3 % (8-40); MCH 30.5 pg (25.7-33.7); MCHC 34.1 g/dl (32.0-35.9); MEAN CELL VOLUME 89.3 fl (80-96); MEAN PLT VOLUME 8.5 fl (7.5-11.1); NEUT % 61.8 % (42.8-82.8); PLATELET COUNT 170 10^3/uL (134-434); RDW 14.3 % (11.9-15.9); WHITE BLOOD COUNT 4.8 K/mm3 (4.0-10.0)
[2022-09-25 09:22] LABS: CALCIUM 9.2 mg/dL (8.5-10.1)
[2022-09-25 09:23] LABS: ALBUMIN 3.1 g/dl (3.4-5.0); BLOOD UREA NITROGEN 27.6 mg/dL (7-18); MAGNESIUM 1.7 mg/dL (1.8-2.4)
[2022-09-25 09:26] LABS: CREATININE 1.7 mg/dL (0.55-1.3); PHOSPHOROUS 3.1 mg/dL (2.5-4.9)
[2022-09-25 09:27] LABS: BILIRUBIN,TOTAL 0.6 mg/dL (0.2-1)
[2022-09-25 09:30] LABS: TOT PROT 7.9 g/dl (6.4-8.2)
[2022-09-25] MEDS ORDERED: PANTOPRAZOLE 40 MG TABLET PO SCH (10:00)
[2022-09-25] MEDS ORDERED: LABETALOL HCL 200 MG TABLET (FP) PO SCH (10:00)
[2022-09-25] MEDS: POLYETHYLENE GLYCOL (HEALTHYLAX) 3350 17 GM PACKET PO SCH ×2 (11:29→22:03)
[2022-09-25] MEDS: ACETAMINOPHEN 1000 MG/100 ML BAG IVPB PRN ×2 (11:40→18:01)
[2022-09-25] MEDS: LABETALOL HCL 200 MG TABLET (FP) PO SCH ×2 (11:40→22:03)
[2022-09-25] MEDS ORDERED: LIDOCAINE 5% TOPICAL PATCH TP ONE (16:01)
[2022-09-25] MEDS ORDERED: oxyCODONE HCL 5 MG TABLET PO PRN (17:56)
[2022-09-25 21:53] VITALS: BP 126/74; PULSE 75
[2022-09-25] MEDS ORDERED: ATORVASTATIN CA 80 MG TABLET (FP) PO SCH (22:00)
[2022-09-25] MEDS ORDERED: HEPARIN NA (PORCINE) 5,000 UNITS/ML 1ML VIAL SQ SCH (22:00)
[2022-09-25] MEDS ORDERED: LIDOCAINE PATCH REMOVAL MC SCH (22:00)
[2022-09-25 23:30] VITALS: RESP 19; TEMP 98.6
== END 2022-09-26 03:01 | disposition short-term general hospital (02) | DRG 536 ==
LOC: JER 15:14 → JERBED 19:20 → J8W 22:17
PROVIDERS: ADMIT Internal Medicine; ATTEND Nurse Practitioner Family
DX: S72.001A Fracture of unspecified part of neck of right femur, initial encounter for closed fracture (principal); M62.82 Rhabdomyolysis; N17.9 Acute kidney failure, unspecified; E78.5 Hyperlipidemia, unspecified; D64.9 Anemia, unspecified; K74.60 Unspecified cirrhosis of liver; W19.XXXA Unspecified fall, initial encounter; Y93.89 Activity, other specified; Y92.009 Unspecified place in unspecified non-institutional (private) residence as the place of occurrence of the external cause; Y99.8 Other external cause status; I12.9 Hypertensive chronic kidney disease with stage 1 through stage 4 chronic kidney disease, or unspecified chronic kidney disease; N18.9 Chronic kidney disease, unspecified; I25.10 Atherosclerotic heart disease of native coronary artery without angina pectoris; Z86.73 Personal history of transient ischemic attack (TIA), and cerebral infarction without residual deficits
CPT/HCPCS: 36415; 70450-TC; 71045-TC-FY; 72125-TC; 72170-TC-FY; 73502-TC-RT-FY; 80053; 82550; 82553; 82728; 83540; 83550; 83735; 84100; 84484; 85025; 85045; 85610; 85730; 86850; 86900; 86901; 93005; 93010; 99285-25; C9803-CS; J1644; U0003; U0005